=== PATIENT | male | born 1960 | race Caucasian/White ===

== ENCOUNTER → 2020-10-08 10:16 | Outpatient (BNVA) | payer MEDICARE, SELFPAY | PROVIDERS: PCP Family Medicine; Visit Provider Family Medicine | DX: I10 Essential (primary) hypertension (principal); E78.5 Hyperlipidemia, unspecified; E11.9 Type 2 diabetes mellitus without complications; E78.1 Pure hyperglyceridemia; M54.9 Dorsalgia, unspecified; G89.29 Other chronic pain | CPT/HCPCS: 80053; 80061; 81015; 82043; 83036; 83721; 85025 ==

== ENCOUNTER → 2020-11-05 09:59 | Outpatient (BNVA) | payer MEDICARE, SELFPAY | PROVIDERS: PCP Family Medicine; Visit Provider Family Medicine | DX: E11.9 Type 2 diabetes mellitus without complications (principal); I10 Essential (primary) hypertension; M51.16 Intervertebral disc disorders with radiculopathy, lumbar region | CPT/HCPCS: 80048 ==

== ENCOUNTER → 2020-12-03 10:36 | Outpatient (BNVA) | payer MEDICARE, SELFPAY | PROVIDERS: PCP Family Medicine; Visit Provider Family Medicine | DX: E11.9 Type 2 diabetes mellitus without complications (principal); R31.9 Hematuria, unspecified; I10 Essential (primary) hypertension | CPT/HCPCS: 80053; 81003; 87086 ==

== ENCOUNTER → 2021-01-12 10:24 | Outpatient (BNVA) | payer MEDICARE, SELFPAY | PROVIDERS: PCP Family Medicine; Visit Provider Family Medicine | DX: E11.9 Type 2 diabetes mellitus without complications (principal); I10 Essential (primary) hypertension; E78.5 Hyperlipidemia, unspecified | CPT/HCPCS: 80048; 83036 ==

== ENCOUNTER 2021-01-25 08:45 | Outpatient (CLI) | payer MEDICARE, SELFPAY ==
--- NOTE | 2021-01-25 08:53 | CT_ITS ---
WS: [id number] Mason Harrell LDCT LUNG CANCER SCREENING DLP: 62 CLINICAL INFORMATION: Lung cancer screening. COMPARISON: None available. TECHNIQUE: Transaxial computed tomography images of the chest non-contrast with sagital and coronal r econstructions. All CT scans at [facility] use at least one of these dose optimization techniques: automat ed exposure control; mA and/or kV adjustment per patient size (includes targeted exams where dose is matched to clinical indication); or iterative reconstruction. FINDINGS: No acute pulmonary infiltrates. Lungs well aerated. No suspicious pulmonary parenchymal abn ormalities. Tiny noncalcified nodule right upper lobe measuring 4 mm. Adjacent fibrosis. No mediastinal or hilar lymphadenopathy. Coronary calcification. No axillary lymphadenopathy. Normal GE junction. Adrenal glands are normal. Hypertrophic changes thoracic spine. Spinal stimulator. CT/CT lung screening [id number] IMPRESSION: LUNG-RADS: 2-Benign Appearance or Behavior FOLLOW UP: 12 Month: Continue annual screening with LDCT
== END 2021-01-25 08:46 | disposition home or self-care (01) ==
LOC: RAD 08:49
PROVIDERS: PCP Family Medicine; Visit Provider Family Medicine
DX: Z12.2 Encounter for screening for malignant neoplasm of respiratory organs (principal); Z87.891 Personal history of nicotine dependence
CPT/HCPCS: 71271

== ENCOUNTER → 2021-04-13 10:46 | Outpatient (BNVA) | payer MEDICARE, SELFPAY | PROVIDERS: PCP Family Medicine; Visit Provider Family Medicine | DX: E11.9 Type 2 diabetes mellitus without complications (principal); E78.5 Hyperlipidemia, unspecified; H81.10 Benign paroxysmal vertigo, unspecified ear; J01.90 Acute sinusitis, unspecified; B96.89 Other specified bacterial agents as the cause of diseases classified elsewhere; R91.1 Solitary pulmonary nodule | CPT/HCPCS: 80053; 80061; 83036; 83721 ==

== ENCOUNTER 2021-04-16 06:00 | Outpatient (RCR) | payer MEDICARE, SELFPAY | END 2021-05-16 23:59 | disposition home or self-care (01) | LOC: SPT 06:00 | PROVIDERS: PCP Family Medicine; Referring Provider Family Medicine; Visit Provider Family Medicine | DX: H81.10 Benign paroxysmal vertigo, unspecified ear (principal) | CPT/HCPCS: 95992; 97162 ==

== ENCOUNTER → 2021-10-18 08:07 | Outpatient (BNVA) | payer MEDICARE, SELFPAY | PROVIDERS: PCP Family Medicine; Visit Provider Family Medicine | DX: I10 Essential (primary) hypertension (principal); E11.9 Type 2 diabetes mellitus without complications; E78.5 Hyperlipidemia, unspecified; F32.9 Major depressive disorder, single episode, unspecified; Z86.010 Personal history of colon polyps | CPT/HCPCS: 80053; 82043; 83036; 85025 ==

== ENCOUNTER 2021-12-27 06:00 | Outpatient (RCR) | payer MEDICARE, SELFPAY | END 2022-01-13 23:59 | disposition home or self-care (01) | LOC: SPT 06:00 | PROVIDERS: PCP Family Medicine; Referring Provider Family Medicine; Visit Provider Family Medicine | DX: S29.019D Strain of muscle and tendon of unspecified wall of thorax, subsequent encounter (principal); X58.XXXD Exposure to other specified factors, subsequent encounter | CPT/HCPCS: 97110; 97161 ==

== ENCOUNTER 2022-01-19 12:34 | Outpatient (CLI) | payer MEDICARE, SELFPAY ==
--- NOTE | 2022-01-19 12:45 | US_ITS ---
WS: [id number] ULTRASOUND ABDOMEN CLINICAL INFORMATION: abdominal pain COMPARISON: None. FINDINGS: Liver Size: Mild hepatomegaly. Craniocaudal length: 16.4 cm. Echogenicity: Coarse Surface nodularity: None. Mass (size and location): None. Bile ducts Intrahepatic ducts: Normal. Common bile duct diameter: 0.5 cm. Gallbladder Normal. Gallstones: None. Gallbladder sludge: None. Gallbladder wall thickening: None. Pericholecystic fluid: None. Sonographic Liriano sign: Absent. Pancreas Normal as visualized. Spleen Splenomegaly: None. Craniocaudal length: 12.0 cm. Right kidney: Normal. Hydronephrosis: None. Size: 10.7 cm x 6.0 cm x 5.6 cm Left kidney: Normal. Hydronephrosis: None. Size: 11.8 cm x 6.2 cm x 6.0 cm. Abdominal aorta and IVC Visualized portions are normal. Ascites: None. US/US abdomen complete* [id number] IMPRESSION: 1. Mild hepatomegaly. Mild diffuse fatty infiltration of the liver. 2. Normal gallbladder. 3. No hydronephrosis in either kidney.
== END 2022-01-19 12:35 | disposition home or self-care (01) ==
PROVIDERS: PCP Family Medicine; Visit Provider Family Medicine Adult Medicine
DX: R16.0 Hepatomegaly, not elsewhere classified (principal); K76.0 Fatty (change of) liver, not elsewhere classified
CPT/HCPCS: 76700

== ENCOUNTER → 2022-02-24 08:59 | Outpatient (BNVA) | payer MEDICARE, SELFPAY | PROVIDERS: PCP Family Medicine; Visit Provider Family Medicine | DX: E11.9 Type 2 diabetes mellitus without complications (principal); E78.5 Hyperlipidemia, unspecified; I10 Essential (primary) hypertension; E78.1 Pure hyperglyceridemia | CPT/HCPCS: 80053; 80061; 83036; 83721 ==

== ENCOUNTER → 2022-05-24 08:31 | Outpatient (BNVA) | payer MEDICARE, SELFPAY | PROVIDERS: PCP Family Medicine; Visit Provider Family Medicine | DX: E11.9 Type 2 diabetes mellitus without complications (principal) | CPT/HCPCS: 80053; 83036 ==

== ENCOUNTER 2022-07-07 09:44 | Outpatient (CLI) | payer MEDICARE, SELFPAY ==
--- NOTE | 2022-07-07 10:00 | CT_ITS ---
WS: [id number] LDCT LUNG CANCER SCREENING HISTORY: former smoker TECHNIQUE: Axial imaging performed from the apices to 1 cm below the costophrenic angles. Coronal and sagittal reformats are submitted with axial MIP series. All CT scans at [facility] use at least one of these dose optimization techniques: automated exposure control; mA and/or kV adjustment per patient size (includes targeted exams where dose is matched to clinical indication); or iterativ e reconstruction. DLP: 62.1 DIvol: 1.6 COMPARISON: 01/25/2021 Diagnostic quality: Satisfactory Lung Nodules: No change in 4 mm nodule along the minor fissure in the area of scarring in the RIGHT u pper lobe. No mass or pulmonary nodules identified. Lungs: Mild hyperinflation from emphysema. Heart: Normal size heart. Moderate coronary artery plaque and calcification. No pericardial effusion. Other findings: No adenopathy. Gynecomastia. Mid to distal esophageal wall circumferential thickening and small hiatal hernia. CT/CT lung screening [id number] IMPRESSION: LUNG-RADS: 2-Benign Appearance or Behavior FOLLOW UP: 12 Month: Continue annual screening with LDCT OTHER FINDINGS (S MODIFIER): None.
== END 2022-07-07 09:45 | disposition home or self-care (01) ==
PROVIDERS: PCP Family Medicine; Visit Provider Family Medicine
DX: Z12.2 Encounter for screening for malignant neoplasm of respiratory organs (principal); Z87.891 Personal history of nicotine dependence
CPT/HCPCS: 71271

== ENCOUNTER → 2022-11-22 08:43 | Outpatient (BNVA) | payer MEDICARE, SELFPAY | PROVIDERS: PCP Family Medicine; Visit Provider Family Medicine | DX: E11.9 Type 2 diabetes mellitus without complications (principal); I10 Essential (primary) hypertension | CPT/HCPCS: 80053; 82043; 83036; 85025 ==

== ENCOUNTER → 2022-11-23 12:35 | Outpatient (BNVA) | payer MEDICARE, SELFPAY | PROVIDERS: PCP Family Medicine; Visit Provider Family Medicine | DX: Z12.5 Encounter for screening for malignant neoplasm of prostate (principal) | CPT/HCPCS: G0103 ==

== ENCOUNTER 2023-01-12 12:22 | Outpatient (CLI) | payer MEDICARE, SELFPAY ==
--- NOTE | 2023-01-12 12:45 | XR_ITS ---
WS: [id number] Exam: XR lumbar spine 2-3V* [id number] Date/Time of Exam: 01/12/2023 12:47 PM Reason For Exam: acute on chronic low back pain. There is posterior fusion of the spine from L3 to S1 with pedicle screws and posterior rods. The fusi on is ossified and stable in appearance. A disc spacer noted at L5-S1. Moderate disc space narrowing from L2 to L5. Associated laminectomy defects at the fusion. A neurostimulator pack is noted just abo ve the right iliac crest with the leads extending cephalad into the thoracic spinal canal.. Spondylos is noted. Facet arthropathy at all levels. XR/XR lumbar spine 2-3V* [id number] IMPRESSION: 1. Stable-appearing posterior fusion from L3 to S1 without obvious complication or hardware failure.
== END 2023-01-12 12:23 | disposition home or self-care (01) ==
PROVIDERS: PCP Family Medicine; Visit Provider Family Medicine
DX: M51.16 Intervertebral disc disorders with radiculopathy, lumbar region (principal); G89.29 Other chronic pain; Z98.1 Arthrodesis status
CPT/HCPCS: 72100

== ENCOUNTER → 2023-03-23 09:12 | Outpatient (BNVA) | payer MEDICARE, SELFPAY | PROVIDERS: PCP Family Medicine; Visit Provider Family Medicine | DX: E11.9 Type 2 diabetes mellitus without complications (principal); E78.5 Hyperlipidemia, unspecified | CPT/HCPCS: 80053; 80061; 83036; 83721 ==

== ENCOUNTER → 2023-05-01 09:02 | Outpatient (BNVA) | payer MEDICARE, SELFPAY | PROVIDERS: PCP Family Medicine; Visit Provider Family Medicine | DX: I10 Essential (primary) hypertension (principal) | CPT/HCPCS: 80048 ==

== ENCOUNTER → 2023-06-12 14:17 | Outpatient (BNVA) | payer MEDICARE, SELFPAY | PROVIDERS: PCP Family Medicine; Referring Provider Family Medicine; Visit Provider Surgery | DX: Z12.11 Encounter for screening for malignant neoplasm of colon (principal) | CPT/HCPCS: 99024; 99203 ==

== ENCOUNTER 2023-06-28 09:47 | Outpatient (CLI) | payer MEDICARE, SELFPAY ==
--- NOTE | 2023-06-28 09:15 | CT_ITS ---
WS: [id number] LDCT LUNG CANCER SCREENING TECHNIQUE: Noncontrast CT of the chest with coronal and sagittal reformatted images. CLINICAL INFORMATION: screening COMPARISON: None. DLP: 134.10 mGy.cm DIvol: Mean CTDIvol: 2.80 (mGy) All CT scans at [facility] use at least one of these dose optimization techniques: automat ed exposure control; mA and/or kV adjustment per patient size (includes targeted exams where dose is matched to clinical indication); or iterative reconstruction. FINDINGS:Tiny 4 mm nodule along the RIGHT minor fissure. No new suspicious pulmonary parenchymal norm alities. A few calcified granulomas. Normal caliber thoracic aorta. No mediastinal or hilar lymphadenopathy. C oronary calcification. Small esophageal hiatal hernia. No axillary lymphadenopathy. Gynecomastia. Adrenal glands are normal. Dorsal spinal stimulator. Hypertrophic changes thoracic spine. IMPRESSION: CT/CT lung screening [id number] LUNG-RADS: 2-Benign Appearance or Behavior FOLLOW UP: 12 Month: Continue annual screening with LDCT
== END 2023-06-28 09:48 | disposition home or self-care (01) ==
LOC: RAD 09:47
PROVIDERS: PCP Family Medicine; Visit Provider Family Medicine
DX: Z12.2 Encounter for screening for malignant neoplasm of respiratory organs (principal); Z87.891 Personal history of nicotine dependence
CPT/HCPCS: 71271

== ENCOUNTER → 2023-08-10 13:09 | Outpatient (BNVA) | payer MEDICARE, SELFPAY | PROVIDERS: PCP Family Medicine; Visit Provider Family Medicine | DX: E11.9 Type 2 diabetes mellitus without complications (principal); I10 Essential (primary) hypertension; E78.1 Pure hyperglyceridemia; E78.5 Hyperlipidemia, unspecified | CPT/HCPCS: 80053; 83036 ==

== ENCOUNTER 2023-08-24 08:58 | Day surgery (SDC) | payer MEDICARE, SELFPAY ==
--- NOTE | 2023-08-24 09:12 | P.ANESASSM_ITS ---
Pre-Anesthetic Assessment Height/Weight: Height 1.83 m Preop Diagnosis: screening colonoscopy Operation Date: 08/24/23 10:05 Proposed Procedures p 72599 colon G0121 screen colon A risk Z12.11(Not Applicable) - Yasmani Yanez MD Familial anesthetic complications: none Was Beta David taken within 24 hours: N/A Was Clonidine taken within 24 hours: N/A Social No tobacco 1 pack(s) per day 45 pack years Stop smoking 3 years later Exam alert, oriented x 3, clear to auscultation bilaterally and regular rate & rhythm Airway Submandibular: within normal limits Mallampati: Class II Dentition: caps and partials History/ROS No significant history except as noted Pulmonary Sleep Apnea Uses CPAP sleeping and naps CV/HEM Hypertension None reported Hepatic None reported GI Gastroesophageal Reflux Disease controlled with diet Metabolic Diabetes Mellitus NIDDM [facility] Lower Back Pain Neuropsych None reported Anesthetic Plan ASA status: 3 Anesthesia: Anesthesia Evaluation and MAC Risk of > 500 ml blood loss (7ml/kg in children): No Medications/Allergies Home Medications Medication Instructions Recorded Confirmed Last Taken Type CPAP AUTO-TITRATING #1 ea 10/08/20 08/24/23 Unknown History ascorbic acid (vitamin C) 500 mg 500 mg PO DAILY 10/08/20 08/24/23 08/23/23 History capsule cholecalciferol (vitamin D3) 50 50 mcg PO DAILY 10/08/20 08/24/23 08/23/23 History mcg (2,000 unit) capsule multivitamin 1 tab PO DAILY 10/08/20 08/24/23 08/23/23 History vitamin E (dl, acetate) 180 mg 450 mg PO DAILY 10/08/20 08/24/23 08/23/23 History (400 unit) capsule blood sugar diagnostic (Accu-Chek #100 ea 11/22/22 08/24/23 Unknown Rx Marivel Plus test strips) metformin 850 mg tablet 850 mg PO BID #180 tabs 05/02/23 08/24/23 08/23/23 Rx oxycodone-acetaminophen 5 mg-325 1 tab PO Q4H PRN pain 5 days #30 06/02/23 08/24/23 2 Weeks Ago Rx mg tablet tabs ~08/10/23 cyclobenzaprine 10 mg tablet 10 mg PO .qhs #30 tabs 08/10/23 08/24/2308/23/24 Rx amlodipine 2.5 mg tablet 2.5 mg PO DAILY 08/22/23 08/24/23 08/24/23 04:30 History canagliflozin 300 mg tablet 1 mg PO DAILY 08/22/23 08/24/23 08/23/23 History (Invokana) carvedilol 6.25 mg tablet 6.25 mg PO BID 08/22/23 08/24/23 08/24/23 04:30 History fenofibrate micronized 200 mg 200 mg PO DAILY 08/22/23 08/24/23 08/23/23 History capsule losartan 100 mg tablet 100 mg PO DAILY 08/22/23 08/24/23 08/23/23 History omega-3 fatty acids-vitamin E 2 cap PO BID 08/22/23 08/24/23 08/23/23 History 1,000 mg capsule rosuvastatin 10 mg tablet 10 mg PO DAILY 08/22/23 08/24/23 08/23/23 History Allergies Allergy/AdvReac Type Severity Reaction Status Date / Time lisinopril AdvReac Mild COUGH Verified 08/10/23 12:44 COUNT INCLUDES THE [facility] Anesthesia Medical History Right upper quadrant abdominal pain Lumbar disc disease with radiculopathy Essential hypertension Type 2 diabetes mellitus without complication, without long-term current use of insulin High triglycerides Dyslipidemia Depression JANES (obstructive sleep apnea) Surgical History S/P insertion of spinal cord stimulator History of back surgery L3-S1 Posterior Fusion L3-L4 Fusion with decompression Hardware removal of L4-S1 Fusion Family History Other CAD (coronary artery disease) Cancer Diabetes Hypertension Social History Smoking and tobacco/nicotine status: former use of tobacco/nicotine Alcohol intake: current Alcohol intake frequency: 3 or more drinks per day Alcohol type: beer and hard liquor Substance/Drug Use: never Data Anesthesia Cardiac Studies: No Data to Display
[2023-08-24 09:16] VITALS: BP 129/80; PULSE 61; RESP 18; TEMP 36.1; O2SAT 98; BMI 31.8
[2023-08-24] MEDS: sodium chloride 0.9% 1,000 ML 30 ML IV (09:28)
--- NOTE | 2023-08-24 09:29 | W.PM.OPSFHP ---
Same Day Surgery H&P Indication for Procedure/HPI DATE OF PROCEDURE: August 24, 2023 CHIEF COMPLAINT/INDICATIONFOR SURGICAL PROCEDURE: need for screening colonoscopy PREOP DIAGNOSIS: screening colonoscopy PLANNED PROCEDURE: Operation Date: 08/24/23 10:05 Proposed Procedures p 73616 colon G0121 screen colon A risk Z12.11(Not Applicable) - Yasmani Yanez MD Medications/Allergies* Home Medications Medication Instructions Recorded Confirmed Type CPAP AUTO-TITRATING #1 ea 10/08/20 08/24/23 History ascorbic acid (vitamin C) 500 mg 500 mg PO DAILY 10/08/20 08/24/23 History capsule cholecalciferol (vitamin D3) 50 50 mcg PO DAILY 10/08/20 08/24/23 History mcg (2,000 unit) capsule multivitamin 1 tab PO DAILY 10/08/20 08/24/23 History vitamin E (dl, acetate) 180 mg 450 mg PO DAILY 10/08/20 08/24/23 History (400 unit) capsule amlodipine 2.5 mg tablet 2.5 mg PO DAILY 08/22/23 08/24/23 History canagliflozin 300 mg tablet 1 mg PO DAILY 08/22/23 08/24/23 History (Invokana) carvedilol 6.25 mg tablet 6.25 mg PO BID 08/22/23 08/24/23 History fenofibrate micronized 200 mg 200 mg PO DAILY 08/22/23 08/24/23 History capsule losartan 100 mg tablet 100 mg PO DAILY 08/22/23 08/24/23 History omega-3 fatty acids-vitamin E 2 cap PO BID 08/22/23 08/24/23 History 1,000 mg capsule rosuvastatin 10 mg tablet 10 mg PO DAILY 08/22/23 08/24/23 History Allergies/Adverse Reactions Allergy/AdvReac Type Severity Reaction Status Date / Time lisinopril AdvReac Mild COUGH Verified 08/10/23 12:44 Current Medications: Generic Name Dose Route Start Last Admin Trade Name Freq PRN Reason Stop Dose Admin Sodium Chloride 1,000 mls @ 30 mls/hr 08/24/23 09:15 08/24/23 09:28 Sodium Chloride 0.9% IV 30 mls/hr .Q24H NICOL Administration Pertinent History/Comorbid Conditions* Medical History (Updated 06/02/23 @ 14:31 by Vanessa Law DO) Right upper quadrant abdominal pain Lumbar disc disease with radiculopathy Essential hypertension Type 2 diabetes mellitus without complication, without long-term current use of insulin High triglycerides Dyslipidemia Depression JANES (obstructive sleep apnea) Surgical History (Updated 12/02/21 @ 09:03 by Vanessa Law DO) S/P insertion of spinal cord stimulator History of back surgery L3-S1 Posterior Fusion L3-L4 Fusion with decompression Hardware removal of L4-S1 Fusion Family History (Updated 10/08/20 @ 09:37 by Nanda Mcneill LPN) Diabetes CAD (coronary artery disease) Cancer Hypertension Social History Smoking and tobacco/nicotine status: former use of tobacco/nicotine Alcohol intake: current Alcohol intake frequency: 3 or more drinks per day Alcohol type: beer and hard liquor Substance/Drug Use: never Pertinent Exam Findings alert, oriented x 3 and clear to auscultation bilaterally Recommendations Surgery/Procedure today Coding Level of Care Code Acute Code for Chg Fwd
[2023-08-24 09:44] LABS: Glucose Point of Care 128 mg/dL (70-110)
[2023-08-24 10:29] VITALS: BP 113/65; PULSE 56; RESP 14; TEMP 35; O2SAT 95
[2023-08-24 10:43] VITALS: BP 118/59; PULSE 60; RESP 16; O2SAT 98
--- NOTE | 2023-08-24 14:15 | ANE.PACU2 ---
Inpatient post-anesthesia follow up: Vital signs: Temperature 95 F Pulse Rate 60 Respiratory Rate 16 Blood Pressure 118/59 Pulse Oximetry 98 Oxygen Delivery Me thod Room Air Oxygen Flow Rate Fraction of Inspir ed Oxygen Hydration adequate: Yes Nausea and vomiting: No Pain level: 1 Mental status: Baseline Additional Comments: no apparent anesthetic complications noted.
== END 2023-08-24 10:59 | disposition home or self-care (01) ==
PROVIDERS: PCP Family Medicine; Visit Provider Surgery
PROC: 0DJD8ZZ Inspection of Lower Intestinal Tract, Via Natural or Artificial Opening Endoscopic (ICD-10-PCS; CPT 45378; principal; 2023-08-24 10:05)
DX: Z12.11 Encounter for screening for malignant neoplasm of colon (principal); K57.30 Diverticulosis of large intestine without perforation or abscess without bleeding; D12.5 Benign neoplasm of sigmoid colon; I10 Essential (primary) hypertension; E11.9 Type 2 diabetes mellitus without complications; E78.5 Hyperlipidemia, unspecified; F32.A Depression, unspecified; G47.33 Obstructive sleep apnea (adult) (pediatric); Z87.891 Personal history of nicotine dependence
CPT/HCPCS: 36416; 45380; 82962; 88305; J2704; J7030

== ENCOUNTER → 2023-09-06 10:38 | Outpatient (BNVA) | payer MEDICARE, SELFPAY | PROVIDERS: PCP Family Medicine; Visit Provider Surgery | DX: Z09 Encounter for follow-up examination after completed treatment for conditions other than malignant neoplasm (principal); D12.6 Benign neoplasm of colon, unspecified | CPT/HCPCS: 99213 ==

== ENCOUNTER 2023-11-09 00:50 | Inpatient (IN) | payer MEDICARE, SELFPAY ==
[2023-11-09] VITALS (14 sets, daily range): BP systolic 112–168; BP diastolic 65–105; PULSE 59–72; RESP 15–21; TEMP 36.6–36.7; O2SAT 93–98; BMI 32.0; BMI 32.1
--- NOTE | 2023-11-09 00:52 | XRR_ITS ---
PROCEDURE INFORMATION: Exam: XR Chest Exam date and time: 11/09/2023 1:05 AM Age: 63 years old Clinical indication: Angina; Prior surgery; Surgery date: 6+ months; Surgery type: Back; Additional info: Chest pain TECHNIQUE: Imaging protocol: Radiologic exam of the chest. Views: 1 view. COMPARISON: No relevant prior studies available. FINDINGS: Limitations: Lordotic positioning. Tubes, catheters and devices: Note is made of a thoracic spinal stimulator. Lungs: The lungs are clear. No pulmonary consolidation. Pleural spaces: No pleural effusion or pneumothorax. Heart/Mediastinum: The cardiomediastinal silhouette is within normal limits. Bones/joints: No acute osseous abnormalities are seen. XR/XR chest 1V portable [id number] IMPRESSION: No acute cardiopulmonary disease.
--- NOTE | 2023-11-09 00:54 | ECG_ITS ---
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 Measurements Intervals [place] Rate: 65 P: 36 [place]: 182 QRS: 7 QRSD: 101 T: 65 QT: 361 QTc: 376 Interpretive Statements SINUS RHYTHM SEPTAL MYOCARDIAL INFARCTION , PROBABLY OLD [40+ ms Q WAVE IN V1/V2] No previous ECG available for comparison Electronically Signed On 11-09-2023 15:08:01 CDT by Angelito Fernandes M.D. [email or web address]
[2023-11-09 01:02] LABS: Basophils # 0.1 10^3/uL (0.0-0.1); Eosinophils # 0.2 10^3/uL (0.0-0.8); Eosinophils % 2.2 %; Hematocrit 43.7 % (37-53); Lymphocytes # 2.5 10^3/uL (0.8-4.8); Lymphocytes % 32.7 %; Mean Corpuscular HGB Conc 33.9 g/dL (30-55); Mean Corpuscular Hemoglobin 29.8 pg (27-33); Mean Corpuscular Volume 87.9 fl (82-101); Mean Platelet Volume 10.5 fL (7.4-10.4); Monocytes # 0.7 10^3/uL (0.2-0.9); Monocytes % 9.7 %; Neutrophils # 4.14 10^3/uL (1.8-7.7); Neutrophils % 54.3 %; Nucleated Red Blood Cells % 0 %; Platelet Count 222 10^3/cmm (157-399); Red Blood Count 4.97 10^6/uL (3.85-5.65); Red Cell Distribution Width 12.8 % (12.1-15.1); White Blood Count 7.64 10^3/uL (3.29-11.43)
--- NOTE | 2023-11-09 01:12 | ED_ITS ---
HPI - Chest Pain 2 General: Chief Complaint: Chest Pain Stated Complaint: CP Time Seen by Provider: 11/09/23 00:53 History of Present Illness: Patient presents to the ER with complaints of chest pain. He states this is more of a chest pressure midsternally that stays in that location and does not radiate. Is not reproducible with palpation or exertion. Patient is only had it at night. He said it every night for the last 3 nights. Patient went to his primary care doc earlier today they did an EKG. and told patient was normal. Patient went home and started having more pain tonight so he decided to come in for further evaluation. Patient denies any cardiac history such as ME stents open heart surgery. Patient is a diabetic with high blood pressure and high cholesterol. The pain was worst earlier today he rates it as 7 or 8, patient says all the way down to 1-2 currently. Review of Systems 2 General: Reports: 10 or more systems reviewed and unremarkable except in HPI and below PFSH ED 2 PFSH: Medical History Right upper quadrant abdominal pain Lumbar disc disease with radiculopathy Essential hypertension Type 2 diabetes mellitus without complication, without long-term current use of insulin High triglycerides Dyslipidemia Depression JANES (obstructive sleep apnea) Surgical History S/P insertion of spinal cord stimulator History of back surgery L3-S1 Posterior Fusion L3-L4 Fusion with decompression Hardware removal of L4-S1 Fusion Family History Other CAD (coronary artery disease) Cancer Diabetes Hypertension Social History Smoking and tobacco/nicotine status: former use of tobacco/nicotine Alcohol intake: current Alcohol intake frequency: 3 or more drinks per day Alcohol type: beer and hard liquor Substance/Drug Use: never Physical Exam 2 Const: COMMON NORMALS: no acute distress, average body habitus, patient oriented x3, no limitations, healthy appearing, alert and well nourished HENMT: COMMON NORMALS: normocephalic, atraumatic, hearing grossly normal bilaterally, external ears normal, Normal external nose present, moist oral mucous membranes and oropharynx normal HEAD & SCALP: normocephalic and atraumatic NOSE: Normal external nose present EXTERNAL EAR: Yes external ears normal Neck/C-Spine: COMMON NORMALS: no JVD Chest: COMMONS NORMALS: normal inspection of the chest and normal palpation of entire chest wall Resp: COMMON NORMALS: normal respiratory effort, No retractions, No use of accessory muscles and clear to auscultation bilaterally AUSCULTATION: clear to auscultation bilaterally Cardio: COMMON NORMALS: no JVD, regular rate, regular rhythm, S1 normal heart sound present, S2 normal heart sound present, No gallops present (Cardio), No clicks present (Cardio), No murmurs present (Cardio) and No rub (Cardio) R ATE: regular rate RHYTHM: regular rhythm HEART SOUNDS: S1 normal heart sound present and S2 normal heart sound present GI: COMMON NORMALS: Normal to inspection, nondistended, normoactive bowel sounds present, Soft to palpation, non-tender, No hepatosplenomegaly present and no masses PALPATION: Yes Soft to palpation and Yes No hepatosplenomegaly present Neuro: COMMON NORMALS: patient oriented x3 SENSORIUM/ORIENTATION: Yes alert Course 2 Vital Signs: Vital signs: Vital Signs Temperature 98.0 F 11/09/23 00:52 Pulse Rate 59 L 11/09/23 04:05 Respiratory Rate 18 11/09/23 04:05 Blood Pressure 112/65 11/09/23 04:05 Pulse Oximetry 93 11/09/23 04:05 Oxygen Delivery Me thod Room Air 11/09/23 04:05 MDM - Chest Pain Medical Decision Making Initial EKG lab work was obtained, patient had elevated troponin, elevated blood pressure, was still having 1-2 chest pain. Patient was given full-strength aspirin and 1 inch Nitropaste. Discussed case with Dr. Fernandes and sent him the first 2 EKGs, Dr. Fernandes said is not a STEMI and he would put him in and just follow troponins. Discussed case with Dr. Kelly who had him started on a heparin drip and agreed to place patient inpatient for further evaluation and treatment. Differential Diagnosis Unlikely acute massive pulmonary embolism, acute respiratory failure, acute myocardial infarction, cardiac arrest or sudden cardiac Medical Records I reviewed the patient's medical records. Lab Data I reviewed the patient's lab results. 11/09/23 00:57 11/09/23 00:57 Radiology Impressions Chest X-Ray 11/09/23 00:52 IMPRESSION: No acute cardiopulmonary disease. Laboratory Results WBC 7.64 10^3/uL (3.29-11.43) 11/09/23 00:57 RBC 4.97 10^6/uL (3.85-5.65) 11/09/23 00:57 Hgb 14.80 g/dL (11.27-16.99) 11/09/23 00:57 Hct 43.7 % (37-53) 11/09/23 00:57 MCV 87.9 fl (82-101) 11/09/23 00:57 MCH 29.8 pg (27-33) 11/09/23 00:57 MCHC 33.9 g/dL (30-55) 11/09/23 00:57 RDW 12.8 % (12.1-15.1) 11/09/23 00:57 Plt Count 222 10^3/cmm (157-399) 11/09/23 00:57 MPV 10.5 fL (7.4-10.4) H 11/09/23 00:57 Neut % (Auto) 54.3 % 11/09/23 00:57 Lymph % (Auto) 32.7 % 11/09/23 00:57 [place] % (Auto) 9.7 % 11/09/23 00:57 Eos % (Auto) 2.2 % 11/09/23 00:57 Baso % (Auto) 1.0 % 11/09/23 00:57 Neut # (Auto) 4.14 10^3/uL (1.8-7.7) 11/09/23 00:57 Lymph # (Auto) 2.5 10^3/uL (0.8-4.8) 11/09/23 00:57 [place] # (Auto) 0.7 10^3/uL (0.2-0.9) 11/09/23 00:57 Eos # (Auto) 0.2 10^3/uL (0.0-0.8) 11/09/23 00:57 Baso # (Auto) 0.1 10^3/uL (0.0-0.1) 11/09/23 00:57 Nucleated RBC % (auto) 0 % 11/09/23 00:57 Nucleated RBCs # 0.0 /100WBC 11/09/23 00:57 PT 12.90 SECONDS (12.1-14.9) 11/09/23 00:57 INR 0.95 (0.8-1.2) 11/09/23 00:57 Sodium 139 mmol/L (136-145) 11/09/23 00:57 Potassium 4.3 mmol/L (3.5-5.1) 11/09/23 00:57 Chloride 100 mmol/L (98-107) 11/09/23 00:57 Carbon Dioxide 24 mmol/L (22-29) 11/09/23 00:57 Anion Gap 19.3 (5-19) H 11/09/23 00:57 BUN 36 mg/dL (8-23) H 11/09/23 00:57 Creatinine 1.3 mg/dL (0.7-1.2) H 11/09/23 00:57 GFR Calculation 55.4 mL/min (90-130) L 11/09/23 00:57 Glucose 162 mg/dL (65-115) H 11/09/23 00:57 Calculated Osmolality 300 mOsm/kg (285-295) H 11/09/23 00:57 Calcium 9.6 mg/dL (8.5-10.5) 11/09/23 00:57 Total Bilirubin 0.4 mg/dL (0.15-1.2) 11/09/23 00:57 AST 38 U/L (0-40) 11/09/23 00:57 ALT 27 U/L (0-41) 11/09/23 00:57 Alkaline Phosphatase 38 U/L (40-130) L 11/09/23 00:57 Troponin T Baseline 319 ng/L (0-15) H* 11/09/23 00:57 Troponin T 120 Minute 254.6 ng/L (0-15) H 11/09/23 02:53 Delta Troponin T -64.4 ABS# (0-10) L 11/09/23 02:53 Total Protein 7.7 g/dL (6.6-8.7) 11/09/23 00:57 Albumin 4.6 g/dL (3.5-5.2) 11/09/23 00:57 Globulin 3.1 g/dL (1.3-4.6) 11/09/23 00:57 All radiology interpretation(s) finalized by discharge Discharge Plan Discharge Patient Disposition: Admitted As Inpatient Clinical Impression: Non-ST elevated myocardial infarction (non-STEMI) Condition: Stable Coding Level of Care Code ED Inspector [employer] for Britni Crow
[2023-11-09 01:15] LABS: INR 0.95 (0.8-1.2)
[2023-11-09 01:20] LABS: Alanine Aminotransferase 27 U/L (0-41); Albumin Level 4.6 g/dL (3.5-5.2); Alkaline Phosphatase 38 U/L (40-130); Anion Gap 19.3 (5-19); Aspartate Amino Transferase 38 U/L (0-40); Blood Urea Nitrogen 36 mg/dL (8-23); Calcium 9.6 mg/dL (8.5-10.5); Carbon Dioxide 24 mmol/L (22-29); Chloride 100 mmol/L (98-107); Creatinine Clr Calc Pharmacy 71.6179; Globulin 3.1 g/dL (1.3-4.6); Glomerular Filtration Rate 55.4 mL/min (90-130); Glucose 162 mg/dL (65-115); Osmolality Calculated 300 mOsm/kg (285-295); Potassium 4.3 mmol/L (3.5-5.1); Sodium 139 mmol/L (136-145); Total Bilirubin 0.4 mg/dL (0.15-1.2); Total Protein 7.7 g/dL (6.6-8.7)
[2023-11-09 01:28] LABS: Troponin(5th) Baseline 319 ng/L (0-15)
[2023-11-09] MEDS: nitroglycerin 1 gm/inch oint Pkt 1 INCH TOPICAL (01:44)
[2023-11-09] MEDS: aspirin 81 mg Chew Tablet 324 MG PO (01:44)
--- NOTE | 2023-11-09 02:47 | ECG_ITS ---
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 Measurements Intervals [place] Rate: 64 P: 25 [place]: 172 QRS: 4 QRSD: 103 T: 62 QT: 411 QTc: 425 Interpretive Statements SINUS RHYTHM Possible previous septal PA Compared to ECG 11/09/2023 00:54:17 ST (T wave) deviation now present Myocardial infarct finding still present Electronically Signed On 11-09-2023 15:09:18 CDT by Angelito Fernandes M.D. [email or web address]
--- NOTE | 2023-11-09 02:54 | ECG_ITS ---
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 Measurements Intervals [place] Rate: 61 P: 49 [place]: 218 QRS: 3 QRSD: 94 T: 16 QT: 404 QTc: 409 Interpretive Statements SINUS RHYTHM WITH FIRST DEGREE AV BLOCK SEPTAL MYOCARDIAL INFARCTION , PROBABLY OLD [40+ ms Q WAVE IN V1/V2] MODERATE T-WAVE ABNORMALITY, CONSIDER ANTERIOR ISCHEMIA [-0.1+ mV T-WAVE IN V3/V4] No previous ECG available for comparison Electronically Signed On 11-09-2023 15:12:25 CDT by Angelito Fernandes M.D. [email or web address]
[2023-11-09 03:17] LABS: Troponin 5 2HR Delta -64.4 ABS# (0-10)
[2023-11-09 03:18] LABS: Troponin 5 2HR 254.6 ng/L (0-15)
[2023-11-09] MEDS: heparin drip 25,000 UNIT/500 ML PREMIX 29.9699999999999989 UNIT IV (04:39)
[2023-11-09] MEDS: heparin 5,000 unit/mL INJ 1 mL IV (04:42)
--- NOTE | 2023-11-09 06:22 | P.HP_ITS ---
Providers/Chief Complaint 2 Admitting Physician: Meme Kelly MD Primary Care Provider: Vanessa Law DO Chief Complaint: CP History of Present Illness Mason Harrell is a 63 year old male with history of hypertension and diabetes, no previous history of CHF or coronary disease, does have positive family history of coronary disease presented today with chief complaint of chest pain. Patient stating that his symptoms started on Monday night around 10 PM when he went to bed, chest pain woke him up, he played down his symptoms, went to bed again and next day he was not able to go on a walk with his he was extremely short of breath, Monday night he experienced chest pain again which are associated with nausea but he did not experience any vomiting. On Monday around midnight he started experiencing chest pain again and this time he decided to come to the hospital. He is describing his pain as pressure-like sensation which would last more than 30 minutes, nonradiating. In the ER he has been diagnosed with non-STEMI,He has been given aspirin loading dose along heparin drip Chest pain-free has Nitropaste on his chest He is stating that his mother had a heart attack at age 55 Patient stopped smoking and drinking alcohol few years ago Review of Systems 2 Const: Denies: fever(s) Eyes: Denies: change in vision ENMT: Denies: throat pain Card: Reports: chest pain Resp: Denies: dyspnea GI: Denies: abdominal pain : Denies: flank pain Musc: Denies: neck pain Medications/Allergies Home Medications Medication Instructions Recorded Confirmed Last Taken Type CPAP AUTO-TITRATING #1 ea 10/08/20 11/07/23 Unknown History ascorbic acid (vitamin C) 500 mg 500 mg PO DAILY 10/08/20 11/07/23 08/23/23 History capsule cholecalciferol (vitamin D3) 50 50 mcg PO DAILY 10/08/20 11/07/23 08/23/23 History mcg (2,000 unit) capsule multivitamin 1 tab PO DAILY 10/08/20 11/07/23 08/23/23 History vitamin E (dl, acetate) 180 mg 450 mg PO DAILY 10/08/20 11/07/23 08/23/23 History (400 unit) capsule blood sugar diagnostic (Accu-Chek #100 ea 11/22/22 11/07/23 Unknown Rx Marivel Plus test strips) amlodipine 2.5 mg tablet 2.5 mg PO DAILY 08/22/23 11/07/23 08/24/23 04:30 History canagliflozin 300 mg tablet 1 mg PO DAILY 08/22/23 11/07/23 08/23/23 History (Invokana) fenofibrate micronized 200 mg 200 mg PO DAILY 08/22/23 11/07/23 08/23/23 History capsule omega-3 fatty acids-vitamin E 2 cap PO BID 08/22/23 11/07/23 08/23/23 History 1,000 mg capsule rosuvastatin 10 mg tablet 10 mg PO DAILY 08/22/23 11/07/23 08/23/23 History carvedilol 6.25 mg tablet See Rx Instructions .Route 10/18/23 11/07/23 Unknown Rx .COMPLEX #180 tabs losartan 100 mg tablet See Rx Instructions .Route 10/18/23 11/07/23 Unknown Rx .COMPLEX #90 tabs metformin 850 mg tablet See Rx Instructions .Route 10/18/23 11/07/23 Unknown Rx .COMPLEX #180 tabs cyclobenzaprine 10 mg tablet 10 mg PO .qhs #30 tabs 11/07/23 11/07/23 Unknown Rx oxycodone-acetaminophen 5 mg-325 1 tab PO Q4H PRN pain 5 days #30 11/07/23 11/07/23 Unknown Rx mg tablet tabs Allergies Allergy/AdvReac Type Severity Reaction Status Date / Time lisinopril AdvReac Mild COUGH Verified 11/09/23 00:56 PFSH Acute 2 PFSH: Medical History Right upper quadrant abdominal pain Lumbar disc disease with radiculopathy Essential hypertension Type 2 diabetes mellitus without complication, without long-term current use of insulin High triglycerides Dyslipidemia Depression JANES (obstructive sleep apnea) Surgical History S/P insertion of spinal cord stimulator History of back surgery L3-S1 Posterior Fusion L3-L4 Fusion with decompression Hardware removal of L4-S1 Fusion Family History Other CAD (coronary artery disease) Cancer Diabetes Hypertension Social History Smoking and tobacco/nicotine status: former use of tobacco/nicotine Alcohol intake: current Alcohol intake frequency: 3 or more drinks per day Alcohol type: beer and hard liquor Substance/Drug Use: never Vitals/I&O/Wt Last Vital Signs Temp 98.0 F 11/09/23 00:52 Pulse 72 11/09/23 05:41 Resp 15 11/09/23 05:41 BP 121/67 11/09/23 05:41 Pulse Ox 94 11/09/23 05:41 O2 Del Method Room Air 11/09/23 05:41 11/08/23 11/08/23 11/09/23 14:59 22:59 06:59 Intake Total 0 / 0 Balance 0 / 0 Weight last 48 hrs Weight 107.048 kg Physical Exam 2 Narrative: Pleasant cooperative S1, S2 Hemodynamically stable Nonfocal neuroexam No acute chest pain Abdomen soft Looks euvolemic at the bedside GCS 15 Data 11/09/23 00:57 11/09/23 00:57 A&P Assessment and plan (1) Essential hypertension: (2) Non-ST elevated myocardial infarction (non-STEMI): (3) Type 2 diabetes mellitus without complication, without long-term current use of insulin: (4) JANES (obstructive sleep apnea): (5) Former smoker: Plan Non-STEMI No active chest pain Currently has nitroglycerin paste on his chest Hemodynamically stable Will request echo Cardiac consultation Patient will need an angiogram I will load him with Brilinta Heparin and aspirin administered in the ER Check B12 TSH and A1c level Patient has history of diabetes and hypertension Does not take insulin, he is on oral antihyperglycemic agent Continue Coreg and amlodipine CHANCE: Hold losartan N.p.o. for now Full code Attestations 2 Medical Necessity Statement*: More than 2 midnights anticipated Diagnoses Essential hypertension I10 Non-ST elevated myocardial infarction (non-STEMI) I21.4 Type 2 diabetes mellitus without complication, without long-term current use of insulin E11.9 JANES (obstructive sleep apnea) G47.33 Former smoker Z87.891
--- NOTE | 2023-11-09 06:47 | USCV_ITS ---
Mason Harrell Age: 63 Gender: M : 1960 Exam Date: 11/09/2023 09:03 Ordering Phys: Meme Kelly MD Technologist: [place] [facility] [place]: nstemi BP: 123 / 75 HR: 75 Rhythm: Sinus Technical Quality: Adequate MEASUREMENTS (Male / Female) Normal Values 2D ECHO LV Diastolic Diameter PLAX 5.5 cm 4.2 - 5.9 / 3.9 - 5.3 cm IVS Diastolic Thickness 1.3 cm 0.6 - 1.0 / 0.6 - 0.9 cm IVS Systolic Thickness 2.0 cm LVPW Diastolic Thickness 1.4 cm 0.6 - 1.0 / 0.6 - 0.9 cm LVPW Systolic Thickness 1.4 cm LVOT Diameter 2.1 cm LV Ejection Fraction 2D Teich 66.3 % LV Ejection Fraction MOD 2C 61.5 % LV Ejection Fraction 2C AL 63.3 % LA Diameter 3.1 cm RA Systolic Volume 4C AL 60.5 ml RA Systolic Volume 4C MOD 57.9 ml Aorta at Sinotubular Diameter 3.1 cm M-MODE LA Ao Ratio MM 1.1 AV Cusp Separation MM 1.8 cm DOPPLER AV Peak Velocity 116.3 cm/s LVOT Peak Velocity 99.0 cm/s AV Area Cont Eq vti 2.9 cm squared AV Area Cont Eq pk 2.9 cm squared MV Peak Velocity 101.0 cm/s TV Peak Velocity 180.5 cm/s TR Peak Velocity 193.0 cm/s TR Peak Gradient 14.9 mmHg TV Peak E Velocity 77.0 cm/s FINDINGS Left Ventricle Moderate hypokinesia of the mid and apical septum and the anteroseptal segments. Moderate hypokinesia of the basal inferior wall segment. The LV ejection fraction around 45 to 50% Right Ventricle The right ventricle is normal in size and function. Right Atrium The right atrium is normal in size. Left Atrium Mildly increased left atrial size. Mitral Valve Trace to mild mitral regurgitation Aortic Valve No gross abnormalities noted Tricuspid Valve No gross abnormalities noted Pulmonic Valve No gross abnormalities noted Pericardium Normal pericardium without effusion. Aorta Normal ascending aorta dimension. IVC The inferior vena cava appears normal. CONCLUSIONS Moderate hypokinesia of the mid and apical septum and the anteroseptal segments. Moderate hypokinesia of the basal inferior wall segment. The LV ejection fraction around 45 to 50%. Trace to mild mitral regurgitation. There is no pericardial effusion. There are no intracardiac masses. No similar previous studies are available for comparison Dr Mila Stearns MD [facility] (Electronically Signed) Final Date: 09 November 2023 18:49 S
--- NOTE | 2023-11-09 06:52 | ECG_ITS ---
[facility] Test Date: 2023-11-09 Pat Name: Mason Harrell Department: Room: 255 Gender: Male Him Director: : 1960 Requested By: Rikki Ziegelr Order Number: [id number] Clary MD: Angelito Fernandes M.D. Measurements Intervals [place] Rate: 65 P: 24 VT: 178 QRS: -9 QRSD: 109 T: 30 QT: 416 QTc: 433 Interpretive Statements SINUS RHYTHM WITH OCCASIONAL VENTRICULAR PREMATURE COMPLEXES MODERATE T-WAVE ABNORMALITY, CONSIDER ANTERIOR ISCHEMIA [-0.1+ mV T-WAVE IN V3/V4] Compared to ECG 11/09/2023 02:54:17 Ventricular premature complex(es) now present First degree AV block no longer present Myocardial infarct finding no longer present T-wave abnormality still present Possible ischemia still present Electronically Signed On 11-09-2023 15:12:40 CDT by Angelito Fernandes M.D. [id number]
[2023-11-09 07:12] LABS: Troponin 5 6HR 315.7 ng/L (0-15); Troponin 5 6HR Delta -3.3 ng/L (0-12)
[2023-11-09 07:14] LABS: Estmated Average Glucose 169; Hemoglobin A1C 7.5 % (4.0-6.0)
[2023-11-09] MEDS: clopidogrel 300 mg Tablet PO (07:18)
[2023-11-09] MEDS: sodium chloride 0.9% 1,000 ML 75 ML IV ×2 (07:21→20:24)
[2023-11-09 07:37] LABS: Thyroid Stimulating Hormone 5.47 uIU/mL (0.27-4.20); Vitamin B12 1459 pg/mL (232-1245)
--- NOTE | 2023-11-09 07:58 | P.CONIM_ITS ---
Providers/Reason For Consult 2 Consulting Physician/Specialty*: BONILLA Stearns MD/cardiology Reason for Consult*: Patient with unstable angina/elevated troponin Requesting Physician: Dr. Kelly Attending Physician: Meme Kelly MD Primary Care Provider: Vanessa Law DO History of Present Illness History of Present Illness Mason Harrell is a 63 year old male is admitted to hospital through the emergency room, where he presented with complaints of chest pain for the last 3 days. He was found to have elevated troponin T. Cardiology consult is requested for further cardiac evaluation recommendations. This patient has a history of hypertension, type 2 diabetes and dyslipidemia for the last more than 10 years. He has been in his baseline state of health up until Monday night when he had the first episode of chest pain while being in bed. The pain was mid substernal, 7-8/10 intensity, pressure-like in nature, associated with some shortness of breath. He did not have any other associated symptoms or radiation of pain. The pain meter lasted for 10 to 15 minutes and then gradually subsided. He and he went back to sleep. He felt okay on Monday. He was seen by his primary care provider for routine scheduled visit. He had an EKG done in the office. Which was told to be unremarkable. So he was scheduled for a stress test. On Monday night, he had another episode of chest pain of more or less similar intensity around 7:00 in the night. It lasted for 10 to 15 minutes and then gradually subsided. Around 1015 or so, he had another episode of pain which was slightly more severe and associated with some nausea. This time the pain lasted for up to 45 minutes. Again the symptoms gradually subsided. He was doing okay during the daytime yesterday. Around midnight last night, he started having the chest pain for the fourth time may be of less intensity. This time, he decided to come to the emergency room. The whole episode of pain might have lasted for an hour and a half. Currently he is totally pain-free. He did not have any radiation of pain or any other associated symptoms. Denies any orthopnea or PND. No fever, chills or cough. At the time of my examination, patient is pain-free. His initial EKG in the emergency room revealed sinus rhythm with some nonspecific T wave changes and possible old septal HI. Subsequent EKG showed some nonspecific ST changes in the anterolateral leads with biphasic T waves. Occasional PVCs. This patient has no previous history for coronary artery disease, myocardial infarction or congestive heart failure. No history for CVA or peripheral artery disease. He is known to have some renal insufficiency. He also had multiple back surgeries. He has a spinal column stimulator. He used to be a heavy alcoholic, used to drink for 40 years, quit a year ago. Also history of smoking abuse up to 2 pack a day for 40 years which he quit 3 years ago. No other substance abuse. His mother had myocardial infarction in her 50s. Other details are not available. His sister also might have had a heart attack but not for sure. No other relevant family history. Review of Systems 2 Narrative: CONSTITUTIONAL: No fever or chills. EYES: No blurring of vision or other visual disturbances lately. ENT: No hoarseness of voice, auditory disturbances or sore throat. CARDIOVASCULAR: As mentioned above. RESPIRATORY: No significant cough. GASTROINTESTINAL: No hematemesis or melena. GENITOURINARY: History of kidney disease INTEGUMENTARY: No skin rashes or history of skin cancer. NEURO: No transient ischemic attacks or amaurosis. PSYCHIATRIC: No history of psychosis or major depression. HEMATOLOGIC: No bleeding disorders or significant anemia. ENDOCRINE: No history of polyuria or polydipsia. MUSCULOSKELETAL: Chronic back pain, has a spinal column stimulator. ALLERGY/IMMUNOLOGY: As mentioned above. Medications/Allergies Home Medications Medication Instructions Recorded Confirmed Last Taken Type CPAP AUTO-TITRATING #1 ea 10/08/20 11/09/23 Unknown History ascorbic acid (vitamin C) 500 mg 500 mg PO DAILY 10/08/20 11/09/23 11/08/23 History capsule cholecalciferol (vitamin D3) 50 50 mcg PO DAILY 10/08/20 11/09/23 11/08/23 History mcg (2,000 unit) capsule multivitamin 1 tab PO DAILY 10/08/20 11/09/23 11/08/23 History vitamin E (dl, acetate) 180 mg 450 mg PO DAILY 10/08/20 11/09/23 11/08/23 History (400 unit) capsule blood sugar diagnostic (Accu-Chek #100 ea 11/22/22 11/09/23 Unknown Rx Marivel Plus test strips) amlodipine 2.5 mg tablet 2.5 mg PO DAILY 08/22/23 11/09/23 11/08/23 History canagliflozin 300 mg tablet 1 mg PO QAM 08/22/23 11/09/23 11/08/23 History (Invokana) fenofibrate micronized 200 mg 200 mg PO DAILY 08/22/23 11/09/23 11/08/23 History capsule rosuvastatin 10 mg tablet 10 mg PO DAILY 08/22/23 11/09/23 11/08/23 History carvedilol 6.25 mg tablet See Rx Instructions .Route 10/18/23 11/09/23 11/08/23 Rx .COMPLEX #180 tabs oxycodone-acetaminophen 5 mg-325 1 tab PO Q4H PRN pain 5 days #30 11/07/23 11/09/23 Unknown Rx mg tablet tabs cyclobenzaprine 10 mg tablet 10 mg PO BEDTIME PRN muscle spasms 11/09/23 11/09/23 Unknown History losartan 100 mg tablet 100 mg PO DAILY 11/09/23 11/09/23 11/08/23 History metformin 850 mg tablet 850 mg PO BID 11/09/23 11/09/23 11/08/23 History omega-3 fatty acids 1,000 mg 2,000 mg PO DAILY 11/09/23 11/09/23 11/08/23 History capsule Allergies Allergy/AdvReac Type Severity Reaction Status Date / Time lisinopril AdvReac Mild COUGH Verified 11/09/23 00:56 Current Medications Generic Name Dose Route Start Last Admin Trade Name Freq PRN Reason Stop Dose Admin Heparin Sodium (Porcine) 0 unit 11/09/23 04:09 11/09/23 04:42 Heparin 5,000 Unit/Ml Inj 1 Ml IV 5,500 unit PRN PRN Administration Heparin weight-base protocol Protocol Heparin Sodium/Sodium Chloride 25,000 unit in 500 mls @ 0 mls/hr 11/09/23 04:15 11/09/23 04:39 Heparin Drip IV 14 unit/kg/hr .Q0M NICOL 29.97 mls/hr Administration Protocol Per Protocol Sodium Chloride 1,000 mls @ 75 mls/hr 11/09/23 06:45 11/09/23 07:21 Sodium Chloride 0.9% IV 75 mls/hr .[id number] NICOL Administration PFSH Acute 2 PFSH: Medical History Right upper quadrant abdominal pain Lumbar disc disease with radiculopathy Essential hypertension Type 2 diabetes mellitus without complication, without long-term current use of insulin High triglycerides Dyslipidemia Depression JANES (obstructive sleep apnea) Surgical History S/P insertion of spinal cord stimulator History of back surgery L3-S1 Posterior Fusion L3-L4 Fusion with decompression Hardware removal of L4-S1 Fusion Family History Other CAD (coronary artery disease) Cancer Diabetes Hypertension Social History Smoking and tobacco/nicotine status: former use of tobacco/nicotine Alcohol intake: current Alcohol intake frequency: 3 or more drinks per day Alcohol type: beer and hard liquor Substance/Drug Use: never Vitals/I&O/Wt Last Vital Signs Temp 98.0 F 11/09/23 00:52 Pulse 64 11/09/23 06:34 Resp 15 11/09/23 06:34 BP 114/67 11/09/23 06:34 Pulse Ox 97 11/09/23 06:34 O2 Del Method Room Air 11/09/23 05:41 11/08/23 11/09/23 11/09/23 22:59 06:59 14:59 Intake Total 0 / 0 Balance 0 / 0 Weight last 48 hrs Weight 236 lb Physical Exam 2 Narrative: GENERAL: The patient is alert and oriented times three. Not in any acute distress. HEENT: No significant pallor, icterus or lymphadenopathy.Oral cavity: There are no mucous membrane lesions. NECK: Trachea appears to be central. No masses noted. No JVD or thyromegaly appreciated. RESPIRATORY: Chest is symmetrical. No intercostals muscle retraction or any accessory muscle activation. There is no chest wall tenderness. Breath sounds are heard bilaterally. No rales or rhonchi heard. No evidence of any consolidation. BREASTS: Deferred. HEART: The heart sounds are normal. No S3 but there is an S4. No significant murmurs. No pericardial rub ABDOMEN: No vessel pulsations or distention. No tenderness. No organomegaly appreciated. Bowel sounds are normally heard. : Deferred. RECTAL: Deferred. LYMPHATIC: No lymphadenopathy noted in the neck. EXTREMITIES: No edema or cyanosis. No clubbing. MUSCULOSKELETAL: No acute joint deformities or swelling SKIN: There are no significant rashes or ecchymosis NEUROPSYCHIATRIC: The patient is alert and oriented x3. Appears to be in a good mood. No tremors or rigidity noted. Data 11/09/23 00:57 11/09/23 00:57 Other Labs: Laboratory Last Values WBC 7.64 10^3/uL (3.29-11.43) 11/09/23 00:57 RBC 4.97 10^6/uL (3.85-5.65) 11/09/23 00:57 Hgb 14.80 g/dL (11.27-16.99) 11/09/23 00:57 Hct 43.7 % (37-53) 11/09/23 00:57 MCV 87.9 fl (82-101) 11/09/23 00:57 MCH 29.8 pg (27-33) 11/09/23 00:57 MCHC 33.9 g/dL (30-55) 11/09/23 00:57 RDW 12.8 % (12.1-15.1) 11/09/23 00:57 Plt Count 222 10^3/cmm (157-399) 11/09/23 00:57 MPV 10.5 fL (7.4-10.4) H 11/09/23 00:57 Neut % (Auto) 54.3 % 11/09/23 00:57 Lymph % (Auto) 32.7 % 11/09/23 00:57 [place] % (Auto) 9.7 % 11/09/23 00:57 Eos % (Auto) 2.2 % 11/09/23 00:57 Baso % (Auto) 1.0 % 11/09/23 00:57 Neut # (Auto) 4.14 10^3/uL (1.8-7.7) 11/09/23 00:57 Lymph # (Auto) 2.5 10^3/uL (0.8-4.8) 11/09/23 00:57 [place] # (Auto) 0.7 10^3/uL (0.2-0.9) 11/09/23 00:57 Eos # (Auto) 0.2 10^3/uL (0.0-0.8) 11/09/23 00:57 Baso # (Auto) 0.1 10^3/uL (0.0-0.1) 11/09/23 00:57 Nucleated RBC % (auto) 0 % 11/09/23 00:57 Nucleated RBCs # 0.0 /100WBC 11/09/23 00:57 PT 12.90 SECONDS (12.1-14.9) 11/09/23 00:57 INR 0.95 (0.8-1.2) 11/09/23 00:57 D-Dimer 0.30 ug/mLFEU (0-0.59) 11/09/23 00:57 Sodium 139 mmol/L (136-145) 11/09/23 00:57 Potassium 4.3 mmol/L (3.5-5.1) 11/09/23 00:57 Chloride 100 mmol/L (98-107) 11/09/23 00:57 Carbon Dioxide 24 mmol/L (22-29) 11/09/23 00:57 Anion Gap 19.3 (5-19) H 11/09/23 00:57 BUN 36 mg/dL (8-23) H 11/09/23 00:57 Creatinine 1.3 mg/dL (0.7-1.2) H 11/09/23 00:57 GFR Calculation 55.4 mL/min (90-130) L 11/09/23 00:57 Glucose 162 mg/dL (65-115) H 11/09/23 00:57 Estimat Average Glucose 169 11/09/23 00:57 Hemoglobin A1c 7.5 % (4.0-6.0) H 11/09/23 00:57 Calculated Osmolality 300 mOsm/kg (285-295) H 11/09/23 00:57 Calcium 9.6 mg/dL (8.5-10.5) 11/09/23 00:57 Total Bilirubin 0.4 mg/dL (0.15-1.2) 11/09/23 00:57 AST 38 U/L (0-40) 11/09/23 00:57 ALT 27 U/L (0-41) 11/09/23 00:57 Alkaline Phosphatase 38 U/L (40-130) L 11/09/23 00:57 Troponin T Baseline 319 ng/L (0-15) H* 11/09/23 00:57 Troponin T 120 Minute 254.6 ng/L (0-15) H 11/09/23 02:53 Delta Troponin T -64.4 ABS# (0-10) L 11/09/23 02:53 Troponin T Hi Sens 6Hr 315.7 ng/L (0-15) H 11/09/23 06:46 Troponin T Hi Sens 6Hr Delta -3.3 ng/L (0-12) L 11/09/23 06:46 Total Protein 7.7 g/dL (6.6-8.7) 11/09/23 00:57 Albumin 4.6 g/dL (3.5-5.2) 11/09/23 00:57 Globulin 3.1 g/dL (1.3-4.6) 11/09/23 00:57 Vitamin B12 1459 pg/mL (232-1245) H 11/09/23 00:57 TSH 5.47 uIU/mL (0.27-4.20) H 11/09/23 00:57 A&P Assessment and plan (1) Non-ST elevated myocardial infarction (non-STEMI): Patient has clinical features of a non-ST elevation myocardial infarction. His troponin I was found to be elevated and is currently trending downwards. The EKG showed anterolateral ST-T changes suggestive of ischemia in the LAD distribution. Hemodynamically patient seems to be stable. He may be treated with IV heparin, topical nitrates, beta-belkis, aspirin and Plavix. The lipid-lowering agents may be continued. (2) Atherosclerotic heart disease of [place] coronary artery with unstable angina pectoris: Most likely this patient has atherosclerotic heart disease. He has a strong family history for premature heart disease. For further evaluation of his coronary status, he requires a cardiac catheterization. Qualifiers: [place] vs. transplanted heart: [place] heart Qualified Code(s): I25.110 - Atherosclerotic heart disease of [place] coronary artery with unstable angina pectoris (3) Essential hypertension: Patient had accelerated hypertension at home. Currently the blood pressure seems to be under control. May continue on the current medications. (4) Dyslipidemia: May be continue on the current medications. (5) Type 2 diabetes mellitus without complication, without long-term current use of insulin: The metformin may be held at this point. Aggressive management of the diabetes would be appropriate. (6) Chronic kidney disease: Most likely this patient has a diabetic kidney. We may carefully hydrate him. Qualifiers: Chronic kidney disease stage: stage 3 (moderate) Chronic kidney disease stage 3 subtype: stage 3a (GFR 45-59) Qualified Code(s): N18.31 - Chronic kidney disease, stage 3a Plan The other problems are History of heavy smoking abuse History of heavy alcohol abuse Chronic back pain and back surgeries Plavix 300 mg p.o. now followed by 75 mg daily. Echocardiogram now. May continue on the current medications. Based on the clinical progress, further recommendations will be made. Possible cardiac catheterization tomorrow. Based on the results of the above tests and the patient's clinical progress, further recommendations will be made. Thank you for the opportunity to evaluate this patient and make these recommendations Consult Attestations 2 Medical Necessity Statement: Patient requires continued hospital stay for close monitoring and further management Coding Level of Care Code 43705 Diagnoses Non-ST elevated myocardial infarction (non-STEMI) I21.4 Atherosclerosis of [place] coronary artery of [place] heart with unstable angina pectoris I25.110 [place] vs. transplanted heart: [place] heart Essential hypertension I10 Dyslipidemia E78.5 Type 2 diabetes mellitus without complication, without long-term current use of insulin E11.9 Stage 3a chronic kidney disease N18.31 Chronic kidney disease stage: stage 3 (moderate) Chronic kidney disease stage 3 subtype: stage 3a (GFR 45-59)
[2023-11-09 08:49] LABS: Glucose Point of Care 156 mg/dL (70-110)
[2023-11-09] MEDS: insulin lispro 100 unit/1 mL SUBCUT (08:53)
[2023-11-09] MEDS: carvedilol 6.25 mg Tablet PO ×2 (08:53→17:35)
[2023-11-09] MEDS: aspirin 81 mg EC Tablet PO (08:53)
[2023-11-09] MEDS: clopidogrel 75 mg Tablet PO (08:53)
[2023-11-09 11:10] LABS: Glucose Point of Care 116 mg/dL (70-110)
--- NOTE | 2023-11-09 11:30 | P.PN_ITS ---
Subjective 2 Subjective: Seen this morning. No acute events overnight. Complains of chest pain on and off which is sharp in the middle of his chest last for few seconds each. Says he was having pain for the last 3 days however with subsequent pain episodes he also got nauseous. Has not vomited however. History of heart disease with father. History of smoking x 45 years. Vitals/I&O/Wt Last Vital Signs Temp 98.0 F 11/09/23 00:52 Pulse 64 11/09/23 08:11 Resp 15 11/09/23 08:11 BP 121/73 11/09/23 08:11 Pulse Ox 97 11/09/23 08:11 O2 Del Method Room Air 11/09/23 08:11 11/08/23 11/09/23 11/09/23 22:59 06:59 14:59 Intake Total 0 / 0 Balance 0 / 0 Weight last 48 hrs Weight 107.229 kg Weight 107.048 kg Physical Exam 2 Narrative: Pleasant cooperative S1, S2 Hemodynamically stable Nonfocal neuroexam No acute chest pain Abdomen soft nontender Lungs clear to auscultation bilaterally Looks euvolemic at the bedside GCS 15 Data 11/09/23 00:57 11/09/23 00:57 A&P Assessment and plan (1) Essential hypertension: (2) Non-ST elevated myocardial infarction (non-STEMI): (3) Type 2 diabetes mellitus without complication, without long-term current use of insulin: (4) JANES (obstructive sleep apnea): (5) Former smoker: Plan #Non-STEMI #Acute kidney injury #Former smoker #Hypertension #Obstructive sleep apnea #Diabetes mellitus, [id number] ?Continue aspirin, Plavix, continue heparin drip, ACS protocol,carvedilol, amlodipine ? Hold losartan secondary to CHANCE ? Hold hold metformin -N.p.o. at midnight tonight ? Cardiac angiogram planned for a.m. Cardiology consulted and on board. Appreciate recommendations. ? Creatinine 1.3 today. Will provide gentle hydration normal saline 100 cc/h. ? Repeat BMP in AM. Patient at risk for contrast-induced nephropathy, baseline creatinine 1.1. ? Check hemoglobin A1c, TSH. HbA1c 7.5, TSH 5.47. Cardiac diet Heparin drip Full code N.p.o. at midnight for cath in a.m. Attestations 2 Medical Necessity Statement*: Cardiac angiogram in a.m., requires hospital stay for treatment of NSTEMI. Diagnoses Essential hypertension I10 Non-ST elevated myocardial infarction (non-STEMI) I21.4 Type 2 diabetes mellitus without complication, without long-term current use of insulin E11.9 JANES (obstructive sleep apnea) G47.33 Former smoker Z87.731
[2023-11-09 13:11] LABS: Partial Thromboplastin Time 77.1 SECONDS (23.9-36.7)
[2023-11-09 16:40] LABS: Glucose Point of Care 111 mg/dL (70-110)
[2023-11-09 20:17] LABS: Partial Thromboplastin Time 63.9 SECONDS (23.9-36.7)
[2023-11-09] MEDS: heparin drip 25,000 UNIT/500 ML PREMIX 28 UNIT IV (20:27)
[2023-11-09] MEDS: atorvastatin 40 mg Tablet 80 MG PO (20:29)
--- NOTE | 2023-11-09 20:39 | PC.NURSE ---
Contacted Dr. Stearns via phone call for orders related to heparin gtt. Dr. Stearns stated to turn the heparin gtt off at 0200 on 11/10/2023.
[2023-11-09 20:41] LABS: Glucose Point of Care 144 mg/dL (70-110)
[2023-11-10] VITALS (10 sets, daily range): BP systolic 122–149; BP diastolic 61–87; PULSE 57–63; RESP 16–20; TEMP 36.7–36.9; O2SAT 93–97
[2023-11-10 04:20] LABS: Basophils # 0.1 10^3/uL (0.0-0.1); Basophils % 1.1 %; Eosinophils # 0.1 10^3/uL (0.0-0.8); Hematocrit 38.7 % (37-53); Lymphocytes # 2.1 10^3/uL (0.8-4.8); Lymphocytes % 39.9 %; Mean Corpuscular HGB Conc 33.3 g/dL (30-55); Mean Corpuscular Hemoglobin 29.5 pg (27-33); Mean Corpuscular Volume 88.4 fl (82-101); Monocytes # 0.6 10^3/uL (0.2-0.9); Monocytes % 10.6 %; Neutrophils # 2.48 10^3/uL (1.8-7.7); Neutrophils % 46.2 %; Nucleated Red Blood Cells % 0 %; Platelet Count 172 10^3/cmm (157-399); Red Blood Count 4.38 10^6/uL (3.85-5.65); Red Cell Distribution Width 12.9 % (12.1-15.1); White Blood Count 5.37 10^3/uL (3.29-11.43)
[2023-11-10 04:37] LABS: Anion Gap 15.8 (5-19); Blood Urea Nitrogen 23 mg/dL (8-23); Calcium 8.8 mg/dL (8.5-10.5); Carbon Dioxide 23 mmol/L (22-29); Chloride 101 mmol/L (98-107); Creatinine Clr Calc Pharmacy 93.0275; Glucose 137 mg/dL (65-115); Osmolality Calculated 288 mOsm/kg (285-295); Phosphorus 3.6 mg/dL (2.5-4.5); Potassium 3.8 mmol/L (3.5-5.1); Sodium 136 mmol/L (136-145)
[2023-11-10] MEDS: aspirin 81 mg EC Tablet PO (06:01)
[2023-11-10] MEDS: diphenhydrAMINE 50 mg Capsule PO (06:01)
--- NOTE | 2023-11-10 07:00 | XACV_ITS ---
Exam Room: [facility] Ht: 183 cm Wt: 107 kg BSA: 2.36 m2 Gender: Male : 1960 Any Known Allergies: Other Exam Priority: Routine Procedure(s): Procedure Description: Diagnostic procedure Procedure Description: Left Heart Catheterization Procedure Description: Left ventriculography Procedure Description: Miscellaneous Procedure Description: ACT Procedure Description: Coronary Angiography Daryn VALERO; Diagnostic Cath Status: Urgent Diagnostic Findings * The left main is a medium to large caliber vessel with a minimal irregularities. * The left anterior descending artery is a medium to large caliber vessel which appears to wrap around the LV apex minimally. The proximal LAD was found to have around 50% narrowing. At the takeoff of the first diagonal branch, there is a tapering narrowing of around 95% involving the ostium of the first diagonal. Right after the second diagonal branch, there was 90% tight segmental stenosis. Distal to this, there is another 50% lesion. The distal LAD was found to have minimal intimal irregularities. No significant stenotic lesions were noted. * The left circumflex artery is a medium caliber nondominant vessel. The first obtuse marginal artery was found to have a long tubular navigable to 90%. It is a small to medium caliber vessel. The rest of the vessel was found to have minimal intimal irregularities.. * The right coronary artery is a large-caliber ectatic vessel with mild to moderate diffuse disease. The PLV branch of the artery was found to be flush occluded. The PLV branch was found to have left to right collaterals during the left coronary injection. Conclusions 1. 62-year-old white male with history of hypertension, type 2 diabetes, dyslipidemia and some chronic kidney disease, presenting with a unstable angina and features of a non-ST elevation myocardial infarction. Echocardiogram revealed multiple wall motion abnormalities with diminished ejection fraction of around 45%. In view of the patient's presenting symptoms and the abnormal objective findings, in order to further evaluate his coronary status, a cardiac catheterization was recommended. Patient underwent left heart catheterization with left and right coronary angiogram and LV angiogram today. The findings are as follows. 2. 1. Mild left main disease #2 high-grade tapering stenosis of around 95% in the proximal to mid LAD, involving the ostium of the first diagonal branch. High-grade lesion in the mid LAD of around 90%. 3. Around 90% tubular lesion in the first IM branch of the circumflex artery. 4. Flush occlusion of the PLV branch of the right coronary artery. Mild to moderate diffuse disease in the other vessels. LV ejection fraction around 45%. LVEDP of 20 mmHg. 3. I reviewed and discussed the cardiac catheterization data with Dr. Fernandes, the buttonhole tacker. Based on the patient's clinical presentation and the angiogram findings , it was thought to be appropriate to consider surgical revascularization as the first option. I discussed this with the patient and his family. They are agreeable for surgical revascularization. I will be contacting the [facility] in [place] as per family's request and we will make arrangements for the same.. Diagnostic RX Recommendation: CABG LV EDP: 20 mmHg Ventriculography Ejection Fraction: 45.0 % Left Ventriculography Findings: * LV gram was performed in the SWAIN projection. The LV cavity appears to be mildly dilated. The LV gram of suboptimal quality because of poor opacification. Diffuse hypokinesis of the left ventricle with ejection fraction of 45%. Pressures Phase:Rest AO : 102 / 71 ( 86 ) @ 8:27:00 AM 113 / 83 ( 98 ) @ 8:31:00 AM 110 / 79 ( 95 ) @ 8:32:00 AM 128 / 77 ( 99 ) @ 8:41:00 AM 136 / 70 ( 99 ) @ 8:41:00 AM LV : 124 / 2 / 20 @ 8:39:00 AM 131 / 7 / 28 @ 8:40:00 AM 130 / 7 / 27 @ 8:41:00 AM Valves Phase:DefaultPhase AV : 3.0 @ 7:49:08 AM 3.0 @ 7:49:08 AM AV Mean Gradient: 19.0 @ 7:49:08 AM 19.0 @ 7:49:08 AM Clinical Evaluation EBL: 5mL-10mL Procedural Details Procedure Consent Obtained. Admit Source: In Patient. Pre-Procedure Time Out. Identified patient by full name and date of as verbalized by the patient/guarantor. Does the consent match the physician's order: Yes. Accurate & Complete Informed Consent: Yes. Inpatient/Outpatient History & Physical on Chart: Yes. If H&P is completed, is and addenduem needed: No; If yes, is the addendum complete: N/A. Visualize and Verify Site with Patient/Guarantor: N/A. Relevant Radiology Images available: Yes. Pre-op teaching completed and patient verbalized understanding. The risks, benefits, and alternatives of sedation and/or procedure were discussed by physician. The patient agrees to continue. Procedure started. [facility] Clinical Fraility Score: 3: Managing Well. Bond Manager Indications: ACS > 24 hours. Chest Pain Symptom Assessment: Typical Angina Symptoms. Correct patient, site and procedure confirmed by cath team. Current diagnosis: NSTEMI. IV Site on Arrival: 20 gauge in the right forearm. IV Fluids: 0.9% NaCl at KVO. 0 mL infused prior to laborer turkey farm. Pre Procedural Pulses: bilateral dorsalis pedis was 3+. Pre Procedural Pulses: bilateral posterior tibial was 3+. Pre Procedural Pulses: bilateral radial was 3+. Oxygen started at 2liters/min via nasal canula. right groin was prepped with chloroprep then draped in the usual sterile fashion. right radial was prepped with chloroprep then draped in the usual sterile fashion. Baseline sample Acquired. HR: 68 BPM. Physician arrived. Lidocaine 1% infiltrated to the right radial. Arterial access obtained. A 5 cambodian Clay catheter in over wire. ACT drawn. Results 134 seconds. Therapeutic limits - pre-heparin administration 90-150 seconds and monitoring heparin during a vascular procedure >250 seconds. Catheter removed over the exchange wire. A 5 cambodian TIG catheter in over wire. Multiple views taken of left coronary artery. Catheter removed over the exchange wire. A 5 cambodian JR4 catheter in over wire. Multiple views taken of right coronary artery. Physician review of cine films with Dr. Fernandes. Catheter removed over the exchange wire. EDP Sample taken: LV 124/2,20; HR: 67 BPM; SpO2: 94%. LV gram performed in SWAIN @ 10 mL/second for a total of 30 mL. EDP Sample taken: LV 131/7,28; HR: 70 BPM; SpO2: 94%. Pullback taken: LV 130/7,27; AO 128/77(99); Mean: 19mmHg, Peak to Peak: 3mmHg, SEP: 6sec/min; HR: 71 BPM; SpO2: 94%. Catheter removed over the exchange wire. A TR Band was successful obtaining hemostatsis at the Right Radial artery insertion site. Post Procedure: Pulses reassessed and unchanged. PERRLA. Strong, equal hand vp delivery bilaterally. No VTE prophylaxis required. Medication's Wasted: Nitro = 49.8 mg. Medication's Wasted: Heparin = 1000 units. Medication's Wasted: Other = Fentanyl 50 mcg. Medication's Wasted: Lidocaine 1% = 17 mL. Total IV fluids: 295 mL. Post-op diagnosis: CAD. Complications: None. Estimated blood loss: 5mL-10mL. Responsiveness - Normal response to verbal stimuli; alert and oriented, PERRLA. Airway - Unaffected, no intervention required; spontaneous ventilation. Circulation: W/N/L, pulses unchanged. Nausea/Vomiting: No. Procedure completed. Patient transferred by wheelchair to 1st floor. Vital chart was stopped. Access Site Site: Right Radial artery Sheath Size: 6 Fr Hemostasis Method: TR Band Hemostasis Success: Successful Procedure Medications Start: 7:07 AM Stop: 7:07 AM Medication: Versed Amount: 1 mg Route: I.V. Start: 7:08 AM Stop: 7:08 AM Medication: Fentanyl Amount: 25 mcg Route: I.V. Start: 7:11 AM Stop: 7:11 AM Medication: Versed Amount: 1 mg Route: I.V. Start: 7:16 AM Stop: 7:16 AM Medication: Nitrogylcerin Amount: 100 mcg Route: I.A. Start: 7:17 AM Stop: 7:17 AM Medication: Verapamil Amount: 5 mg Route: I.A. Start: 7:17 AM Stop: 7:17 AM Medication: 0.9% Saline Amount: 250 Route: I.V. bolus Start: 7:26 AM Stop: 7:26 AM Medication: Heparin Amount: 3000 units Route: I.V. Start: 7:36 AM Stop: 7:36 AM Medication: Fentanyl Amount: 25 mcg Route: I.V. Start: 7:36 AM Stop: 7:36 AM Medication: Verapamil Amount: 100 mcg Route: I.A. I, the attending physician, have reviewed and verified all procedure medications. Yes, all medications given per verbal order History/Risk Factors Hypertension: Yes Dyslipidemia: Yes Peripheral Arterial Disease (PAD): No Myocardial Infarction ([place]): No Obesity: Yes Renal Disease: No Tobacco Use: Former Prior Interventions PCI: No CABG: No Valve Surgery: No Report Signatures Finalized by Dr Mila Stearns MD [facility] on 11/10/2023 08:20 AM
--- NOTE | 2023-11-10 07:08 | W.PM.OPSUD ---
Surgery/Procedure H&P Update DATE OF PROCEDURE: November 10, 2023 DATE H&P PERFORMED: 11/09/23 H&P UPDATE INFORMATION: I have reviewed H&P completed within last 30 days, I have examined patient prior to procedure and No changes to prior documentation PREOP DIAGNOSIS: ASHD PRIMARY INDICATION FOR PROCEDURE: NSTEMI/ UAP PLANNED PROCEDURE: Operation Date: 11/10/23 07:00 Proposed Procedures p Cardiac Catheterization(Left) - Mila Stearns MD PATIENT REASSESSED PRIOR TO SEDATION, WITH NO CHANGE NOTED: Yes PHYSICAL EXAM: alert, oriented x 3, clear to auscultation bilaterally and regular rate & rhythm AIRWAY EVAL/ANESTHESIA PLAN: ASA IV, Monitored Anesthesia, Local Anesthesia, Risks, benefits & alternatives of sedation and/or procedure discussed and Patient agrees to continue as planned
--- NOTE | 2023-11-10 07:50 | SUR.EXTENDED ---
Received the patient back from the film laboratory technician via wheelchair s/p Diagnostic [facility]. Patient ambulated to the cot without difficulty. A & 0 x 3. classroom monitor placed and vital signs obtained. TR band intact to the right wrist. No bleeding or hematoma noted. Palpable radial pulse. No other assessment changes noted from pre cath assessment. Family at bedside. No concerns voiced at this time. Will transfer back to [facility] after recovery.
--- NOTE | 2023-11-10 08:20 | SUR.EXTENDED ---
Patient transferred to room 107 via wheelchair. Family at bedside.
--- NOTE | 2023-11-10 09:01 | PC.CHAP ---
Pastoral Care Encounter/Spiritual Assessment Type of Contact [] Declined strategic development manager visit [] Patient/Family/Request visit [] Outpatient visit [] Follow-up visit [] Physician referral [] Code/Alert [] Routine visit [] Staff referral [] Actively dying [] Patient sleeping [] Family support [] [x] Out of room [] Palliative care [] [] Receiving care in room [] Pre-surgical visit [] Trauma [] Long length of stay [] ICU visit [] Other: Relational/Emotional Strength [] Patient feels connected with others/family/visitors/staff [] Distress [] Loneliness/isolation [] Abandonment Spirituality of Patient [] Person of Kat [] Attends Yarsani of their Kat [] Believes in Prayer [] Reads Bible or Tenriism materials [] There are Spiritual issues to be addressed Production Worker Interventions [] Prayer [] Active listening [] Non-anxious presence [] Spiritual/emotional support [] Crisis/trauma care [] Spiritual counseling [] Bereavement support [] Provided bereavement packet [] Provided Bible/devotional materials [] Provided toy/stuffed animal, coloring book to patient or family member [] Provided Communion [] Anointing/Riparius [] Salvation [] Completed spiritual assessment [] Other: Impact on Illness or Injury [] Angry [] Fearful [] Anxious [] Often cries [] Exhaustion [] Unable to work [] Unable to attend jain [] Unable to walk/stand [] Unable to read [] Unable to drive [] Unable to eat/drink [] Unable to sleep [] Unable to be with family [] Patient intubated [] Other: Summary Time spent with patient
--- NOTE | 2023-11-10 09:08 | P.PN_ITS ---
Subjective 2 Medications: Reviewed: Yes Vitals/I&O/Wt Last Vital Signs Temp 98.3 F 11/10/23 08:35 Pulse 62 11/10/23 08:35 Resp 17 11/10/23 08:35 BP 149/80 11/10/23 08:35 Pulse Ox 96 11/10/23 08:35 O2 Del Method Room Air 11/10/23 08:35 11/09/23 11/10/23 11/10/23 22:59 06:59 14:59 Intake Total 1408.683 / 2158.913 183.4 / 2342.313 240 / 240 Output Total 600 / 600 600 / 600 Balance 1408.683 / 2158.913 -416.6 / 1742.313 -360 / -360 Weight last 48 hrs Weight 235 lb 8 oz Weight 235 lb 9.6 oz Weight 236 lb 6.4 oz Weight 236 lb Data 11/10/23 03:34 11/10/23 03:34 Coding Level of Care Code Acute Code for Chg Fwd
[2023-11-10] MEDS: sodium chloride 0.9% 1,000 ML 75 ML IV (09:42)
[2023-11-10] MEDS: carvedilol 6.25 mg Tablet PO (09:42)
--- NOTE | 2023-11-10 11:03 | PM.TDS ---
Transfer Summary Providers Date of Admission: 11/09/23 04:21 Date of Discharge/Transfer: 11/10/23 Attending Provider at Admission: Meme Kelly MD Attending Provider at Transfer: Erma Alexander MD Primary Care Provider: Vanessa Law DO Transfer Plans: Anticipated date of transfer: 11/10/23. Receiving Facility: [facility]. Receiving Provider: Dr. Lane. Diagnoses at Discharge Discharge Diagnosis (1) Essential hypertension: Status: Chronic (2) Non-ST elevated myocardial infarction (non-STEMI): Status: Acute (3) Type 2 diabetes mellitus without complication, without long-term current use of insulin: Status: Chronic (4) JANES (obstructive sleep apnea): Status: Chronic (5) Former smoker: Status: Acute Reason for Visit Reason for Visit CP Hospital Course Hospital Course Presented to the hospital with chest pain diagnosed with NSTEMI. Underwent cardiac catheterization found to have triple-vessel disease. Will be transferred to [facility] for planned CABG. Dr. Stearns spoke to CT surgeon Dr. Lane at [facility] who has accepted the patient for transfer. Had CHANCE on admission as well. Creatinine back to baseline with gentle hydration. 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 echo complete* [id number] Routine Ultrasound 11/09/23 06:47 Completed Laboratory Last Values WBC 5.37 10^3/uL (3.29-11.43) 11/10/23 03:34 RBC 4.38 10^6/uL (3.85-5.65) 11/10/23 03:34 Hgb 12.90 g/dL (11.27-16.99) 11/10/23 03:34 Hct 38.7 % (37-53) 11/10/23 03:34 MCV 88.4 fl (82-101) 11/10/23 03:34 MCH 29.5 pg (27-33) 11/10/23 03:34 MCHC 33.3 g/dL (30-55) 11/10/23 03:34 RDW 12.9 % (12.1-15.1) 11/10/23 03:34 Plt Count 172 10^3/cmm (157-399) 11/10/23 03:34 MPV 11.0 fL (7.4-10.4) H 11/10/23 03:34 Neut % (Auto) 46.2 % 11/10/23 03:34 Lymph % (Auto) 39.9 % 11/10/23 03:34 [place] % (Auto) 10.6 % 11/10/23 03:34 Eos % (Auto) 2.0 % 11/10/23 03:34 Baso % (Auto) 1.1 % 11/10/23 03:34 Neut # (Auto) 2.48 10^3/uL (1.8-7.7) 11/10/23 03:34 Lymph # (Auto) 2.1 10^3/uL (0.8-4.8) 11/10/23 03:34 [place] # (Auto) 0.6 10^3/uL (0.2-0.9) 11/10/23 03:34 Eos # (Auto) 0.1 10^3/uL (0.0-0.8) 11/10/23 03:34 Baso # (Auto) 0.1 10^3/uL (0.0-0.1) 11/10/23 03:34 Nucleated RBC % (auto) 0 % 11/10/23 03:34 Nucleated RBCs # 0.0 /100WBC 11/10/23 03:34 PT 12.90 SECONDS (12.1-14.9) 11/09/23 00:57 INR 0.95 (0.8-1.2) 11/09/23 00:57 APTT 63.9 SECONDS (23.9-36.7) H 11/09/23 19:56 D-Dimer 0.30 ug/mLFEU (0-0.59) 11/09/23 00:57 Sodium 136 mmol/L (136-145) 11/10/23 03:34 Potassium 3.8 mmol/L (3.5-5.1) 11/10/23 03:34 Chloride 101 mmol/L (98-107) 11/10/23 03:34 Carbon Dioxide 23 mmol/L (22-29) 11/10/23 03:34 Anion Gap 15.8 (5-19) 11/10/23 03:34 BUN 23 mg/dL (8-23) 11/10/23 03:34 Creatinine 1.0 mg/dL (0.7-1.2) 11/10/23 03:34 GFR Calculation 75.0 mL/min (90-130) L 11/10/23 03:34 Glucose 137 mg/dL (65-115) H 11/10/23 03:34 POC Glucose 144 mg/dL (70-110) H 11/09/23 20:38 Estimat Average Glucose 169 11/09/23 00:57 Hemoglobin A1c 7.5 % (4.0-6.0) H 11/09/23 00:57 Calculated Osmolality 288 mOsm/kg (285-295) 11/10/23 03:34 Calcium 8.8 mg/dL (8.5-10.5) 11/10/23 03:34 Phosphorus 3.6 mg/dL (2.5-4.5) 11/10/23 03:34 Magnesium 2.0 mg/dL (1.7-2.3) 11/10/23 03:34 Total Bilirubin 0.4 mg/dL (0.15-1.2) 11/09/23 00:57 AST 38 U/L (0-40) 11/09/23 00:57 ALT 27 U/L (0-41) 11/09/23 00:57 Alkaline Phosphatase 38 U/L (40-130) L 11/09/23 00:57 Troponin T Baseline 319 ng/L (0-15) H* 11/09/23 00:57 Troponin T 120 Minute 254.6 ng/L (0-15) H 11/09/23 02:53 Delta Troponin T -64.4 ABS# (0-10) L 11/09/23 02:53 Troponin T Hi Sens 6Hr 315.7 ng/L (0-15) H 11/09/23 06:46 Troponin T Hi Sens 6Hr Delta -3.3 ng/L (0-12) L 11/09/23 06:46 Total Protein 7.7 g/dL (6.6-8.7) 11/09/23 00:57 Albumin 4.6 g/dL (3.5-5.2) 11/09/23 00:57 Globulin 3.1 g/dL (1.3-4.6) 11/09/23 00:57 Vitamin B12 1459 pg/mL (232-1245) H 11/09/23 00:57 TSH 5.47 uIU/mL (0.27-4.20) H 11/09/23 00:57 Radiology Impressions Chest X-Ray 11/09/23 00:52 IMPRESSION: No acute cardiopulmonary disease. Recent Clincial Data Last Vital Signs Temp 98.3 F 11/10/23 08:35 Pulse 62 11/10/23 08:35 Resp 17 11/10/23 08:35 BP 149/80 11/10/23 08:35 Pulse Ox 96 11/10/23 08:35 O2 Del Method Room Air 11/10/23 08:35 Vital Signs Temp Pulse Resp BP BP Pulse Ox O2 Del Method 11/10/23 08:35 98.3 F 62 17 149/80 96 Room Air 11/10/23 08:15 60 19 H 139/61 96 Room Air 11/10/23 08:07 60 17 144/68 94 Room Air 11/10/23 08:02 63 17 132/87 95 Room Air 11/10/23 06:00 61 11/10/23 04:00 98.0 F 62 16 122/69 93 CPAP 11/10/23 00:00 98.4 F 63 20 H 127/84 97 Room Air Intake & Output/Weight 11/08/23 11/09/23 11/10/23 11/11/23 06:59 06:59 06:59 06:59 Intake Total 0 / 0 2342.313 / 2342.313 1237.5 / 1237.5 Output Total 600 / 600 600 / 600 Balance 0 / 0 1742.313 / 1742.313 637.5 / 637.5 Weight 107.048 kg 106.821 kg Vitals Last Vital Signs Temp 98.3 F 11/10/23 08:35 Pulse 62 11/10/23 08:35 Resp 17 11/10/23 08:35 BP 149/80 11/10/23 08:35 Pulse Ox 96 11/10/23 08:35 O2 Del Method Room Air 11/10/23 08:35 TS Medications Medications Acetaminophen (Acetaminophen 500 Mg Tablet) 500 mg PO Q4H PRN PRN Reason: fever Al Hydrox/Mg Hydrox/Simethicone (Dysr-Bww-Jvtuxziiu-Thalia 30 Ml Udc) 30 ml PO Q15M PRN PRN Reason: INDIGESTION Albuterol/Ipratropium (Ipratropium-Albuterol 3 Ml Neb) 3 ml INHALATION Q6H PRN PRN Reason: SHORTNESS OF BREATH Aspirin (Aspirin 81 Mg Ec Tablet) 81 mg PO DAILY [facility] Last Admin: 11/10/23 06:01 Dose: 81 mg Atorvastatin Calcium (Atorvastatin 40 Mg Tablet) 80 mg PO BEDTIME [facility] Last Admin: 11/09/23 20:29 Dose: 80 mg Atropine Sulfate (Atropine 1 Mg/Ml Sdv 1 Ml) 0.5 mg IVP PRN PRN PRN Reason: Symptomatic bradycardia Carvedilol (Carvedilol 6.25 Mg Tablet) 6.25 mg PO BID [facility] Last Admin: 11/10/23 09:42 Dose: 6.25 mg Clopidogrel Bisulfate (Clopidogrel 75 Mg Tablet) 75 mg PO DAILY [facility] Last Admin: 11/10/23 10:49 Dose: Not Given Heparin Sodium (Porcine) (Heparin 5,000 Unit/Ml Inj 1 Ml) 0 unit IV PRN PRN; Protocol PRN Reason: Heparin weight-base protocol Last Admin: 11/09/23 04:42 Dose: 5,500 unit Dextrose (D5w) 500 mls @ 0 mls/hr IV ONCE PRN; Protocol PRN Reason: Adult Acute Hypoglycemia Prot Dextrose (D10w) 125 mls @ 750 mls/hr IV PRN PRN; Protocol PRN Reason: Adult Acute Hypoglycemia Nursing Protocol Dextrose (D10w) 250 mls @ 1,000 mls/hr IV PRN PRN; Protocol PRN Reason: Adult Acute Hypoglycemia Nursing Protocol Sodium Chloride (Sodium Chloride 0.9%) 1,000 mls @ 75 mls/hr IV .[id number] [facility] Last Admin: 11/10/23 09:42 Dose: 75 mls/hr Sodium Chloride (Sodium Chloride 0.9%) 1,000 mls @ 50 mls/hr IV .Q20H ONE Stop: 11/10/23 15:36 Last Admin: 11/10/23 10:17 Dose: Not Given Insulin Human Lispro (Insulin Lispro 100 Unit/1 Ml) 0 unit SUBCUT TIDWM [facility]; Protocol Last Admin: 11/10/23 08:28 Dose: Not Given Magnesium Hydroxide (Magnesium Hydroxide 30 Ml Udc) 30 ml PO DAILY PRN PRN Reason: CONSTIPATION Morphine Sulfate (Morphine 4 Mg/Ml Sdv 1 Ml) 2 mg IVP Q4H PRN PRN Reason: SEVERE PAIN Naloxone HCl (Naloxone 0.4 Mg/Ml Sdv) 0.1 mg IVP Q2M PRN PRN Reason: RESPIRATORY RATE < 8/MIN Nitroglycerin (Nitroglycerin 0.4 Mg Sublingual Tablet) 0.4 mg SUBLINGUAL Q5M PRN PRN Reason: CHEST PAIN Ondansetron HCl (Ondansetron 2 Mg/Ml Sdv 2 Ml) 4 mg IVP Q6H PRN PRN Reason: NAUSEA AND VOMITING Temazepam (Temazepam 15 Mg Capsule) 15 mg PO BEDTIME PRN PRN Reason: INSOMNIA Discontinued Medications Aspirin (Aspirin 81 Mg Chew Tablet) 324 mg PO NOW ONE Stop: 11/09/23 01:36 Last Admin: 11/09/23 01:44 Dose: 324 mg Aspirin (Aspirin 325 Mg Tablet) 325 mg PO ONCE ONE Stop: 11/09/23 19:38 Last Admin: 11/10/23 10:17 Dose: Not Given Clopidogrel Bisulfate (Clopidogrel 300 Mg Tablet) 300 mg PO ONCE ONE Stop: 11/09/23 06:45 Last Admin: 11/09/23 07:18 Dose: 300 mg Diphenhydramine HCl (Diphenhydramine 50 Mg Capsule) 50 mg PO ONCE ONE Stop: 11/10/23 06:01 Last Admin: 11/10/23 06:01 Dose: 50 mg Diphenhydramine HCl (Diphenhydramine 50 Mg Capsule) 50 mg PO ONCE ONE Stop: 11/09/23 19:38 Last Admin: 11/10/23 10:17 Dose: Not Given Fentanyl (Fentanyl 50 Mcg/Ml Inj 2ml) Confirm Administered Dose 100 mcg .ROUTE .STK-MED ONE Stop: 11/10/23 06:14 Heparin Sodium (Porcine) (Heparin 5,000 Unit/Ml Inj 1 Ml) Confirm Administered Dose 10,000 unit .ROUTE .STK-MED ONE Stop: 11/10/23 06:14 Heparin Sodium/Sodium Chloride (Heparin Drip) 25,000 unit in 500 mls @ 0 mls/hr IV .Q0M NICOL; Protocol Stop: 11/10/23 02:00 Last Titration: 11/10/23 03:00 Dose: 0 unit/kg/hr, 0 mls/hr Lidocaine HCl (Xylocaine) Confirm Administered Dose 20 mls @ as directed .ROUTE .STK-MED ONE Stop: 11/10/23 06:14 Sodium Chloride (Sodium Chloride 0.9%) Confirm Administered Dose 1,000 mls @ as directed .ROUTE .STK-MED ONE Stop: 11/10/23 06:14 Potassium Chloride/Sodium Chloride (Sodium Chlor 0.45% +Kcl 20 Meq) 20 meq in 1,000 mls @ 100 mls/hr IV .Q10H [facility] Last Admin: 11/10/23 10:30 Dose: Not Given Midazolam HCl (Midazolam 1 Mg/Ml Inj 2 Ml) Confirm Administered Dose 2 mg .ROUTE .STK-MED ONE Stop: 11/10/23 06:14 Nitroglycerin (Nitroglycerin 1 Gm/Inch Oint Pkt) 1 inch TOPICAL ONCE ONE Stop: 11/09/23 01:36 Last Admin: 11/09/23 01:44 Dose: 1 inch Nitroglycerin (Nitroglycerin 5 Mg/Ml Sdv 10 Ml) Confirm Administered Dose 50 mg .ROUTE .STK-MED ONE Stop: 11/10/23 06:14 Verapamil HCl (Verapamil 2.5 Mg/Ml Inj 2ml) Confirm Administered Dose 5 mg .ROUTE .STK-MED ONE Stop: 11/10/23 06:14 Allergies lisinopril Adverse Reaction (Mild, Verified 11/09/23 00:56) COUGH Home Medications CPAP AUTO-TITRATING #1 ea 10/08/20 [History Confirmed 11/09/23] ascorbic acid (vitamin C) 500 mg capsule 500 mg PO DAILY 10/08/20 [History Confirmed 11/09/23] cholecalciferol (vitamin D3) 50 mcg (2,000 unit) capsule 50 mcg PO DAILY 10/08/20 [History Confirmed 11/09/23] multivitamin 1 tab PO DAILY 10/08/20 [History Confirmed 11/09/23] vitamin E (dl, acetate) 180 mg (400 unit) capsule 450 mg PO DAILY 10/08/20 [History Confirmed 11/09/23] blood sugar diagnostic (Accu-Chek Marivel Plus test strips) #100 ea 11/22/22 [Rx Confirmed 11/09/23] amlodipine 2.5 mg tablet 2.5 mg PO DAILY 08/22/23 [History Confirmed 11/09/23] canagliflozin 300 mg tablet (Invokana) 1 mg PO QAM 08/22/23 [History Confirmed 11/09/23] fenofibrate micronized 200 mg capsule 200 mg PO DAILY 08/22/23 [History Confirmed 11/09/23] rosuvastatin 10 mg tablet 10 mg PO DAILY 08/22/23 [History Confirmed 11/09/23] carvedilol 6.25 mg tablet See Rx Instructions .Route .COMPLEX #180 tabs 10/18/23 [Rx Confirmed 11/09/23] oxycodone-acetaminophen 5 mg-325 mg tablet 1 tab PO Q4H PRN pain 5 days #30 tabs 11/07/23 [Rx Confirmed 11/09/23] cyclobenzaprine 10 mg tablet 10 mg PO BEDTIME PRN muscle spasms 11/09/23 [History Confirmed 11/09/23] losartan 100 mg tablet 100 mg PO DAILY 11/09/23 [History Confirmed 11/09/23] metformin 850 mg tablet 850 mg PO BID 11/09/23 [History Confirmed 11/09/23] omega-3 fatty acids 1,000 mg capsule 2,000 mg PO DAILY 11/09/23 [History Confirmed 11/09/23] Discharge Plan Discharge Patient Disposition: Xfer Other Condition: Stable Prescriptions: No Action multivitamin Tablet 1 tab PO DAILY ascorbic acid (vitamin C) 500 mg capsule 500 mg PO DAILY (DME) CPAP AUTO-TITRATING See Rx Instructions .Route .MEDSUPPLY Qty: 1 Rx Instructions: 7-17 vitamin E (dl, acetate) 400 unit capsule 450 mg PO DAILY cholecalciferol (vitamin D3) 50 mcg (2,000 unit) capsule 50 mcg PO DAILY (DME) Accu-Chek Marivel Plus test strp Strip See Rx Instructions .ROUTE .MEDSUPPLY Qty: 100 11RF Rx Instructions: TWICE DAILY carvedilol 6.25 mg tablet See Rx Instructions .ROUTE .COMPLEX Qty: 180 0RF Dose Instruction: TAKE ONE TABLET BY MOUTH TWICE DAILY (must administer with a meal/ food) Rx Instructions: TAKE ONE TABLET BY MOUTH TWICE DAILY (must administer with a meal/ food) oxycodone-acetaminophen 5-325 mg tablet 1 tab PO Q4H PRN (Reason: pain) 5 Days Qty: 30 0RF amlodipine 2.5 mg tablet 2.5 mg PO DAILY fenofibrate micronized 200 mg capsule 200 mg PO DAILY rosuvastatin 10 mg tablet 10 mg PO DAILY Invokana 300 mg tablet 1 mg PO QAM omega-3 fatty acids 1,000 mg Capsule 2,000 mg PO DAILY cyclobenzaprine 10 mg tablet 10 mg PO BEDTIME PRN (Reason: muscle spasms) metformin 850 mg tablet 850 mg PO BID losartan 100 mg tablet 100 mg PO DAILY Referrals: Vanessa Law DO [Primary Care Provider] - Chelsie Khan FNP [Nurse Practitioner] - 11/23/23 2:30 pm Patient Instructions: Coronary Angioplasty (DC), Post Angiogram Home Care Instructions, Pain Management, Post Heart Attack Stoplight Transfer Attestations Time Spent in Transfer Care: greater than 30 min Quality Metrics Clinical Quality Measures [ No reported AMI, CVA or VTE this stay] Coding Level of Care Code 04647 Total time (in minutes) for Discharge: 46 Diagnoses Essential hypertension I10 Non-ST elevated myocardial infarction (non-STEMI) I21.4 Type 2 diabetes mellitus without complication, without long-term current use of insulin E11.9 JANES (obstructive sleep apnea) G47.33 Former smoker Z87.121
[2023-11-10 12:12] LABS: Glucose Point of Care 145 mg/dL (70-110)
--- NOTE | 2023-11-10 12:36 | PC.SOCIAL ---
Pg 2 IMM Explained to pt Pg 2 IMM. No questions voiced. Provided pt a copy. Initialed, dated, & timed a copy & placed in chart.
[2023-11-10] MEDS: insulin lispro 100 unit/1 mL SUBCUT (12:50)
--- NOTE | 2023-11-10 15:11 | PC.NURSE ---
report called to [facility] for transfer
--- NOTE | 2023-11-10 16:02 | PC.NURSE ---
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
== END 2023-11-10 16:02 | disposition short-term general hospital (02) | DRG 281 ==
LOC: ER 04:11 → ER IP 04:30 → MEDSURG 06:39 → CSU 23:07
PROVIDERS: Internal Medicine Cardiovascular Disease; Admitting Provider Internal Medicine; Emergency Provider Emergency Medicine; PCP Family Medicine; Visit Provider Internal Medicine
PROC: B2111ZZ Fluoroscopy of Multiple Coronary Arteries using Low Osmolar Contrast (ICD-10-PCS; principal; 2023-11-10 07:00)
DX: I21.4 Non-ST elevation (NSTEMI) myocardial infarction (principal); N17.9 Acute kidney failure, unspecified; I25.110 Atherosclerotic heart disease of native coronary artery with unstable angina pectoris; E11.22 Type 2 diabetes mellitus with diabetic chronic kidney disease; I12.9 Hypertensive chronic kidney disease with stage 1 through stage 4 chronic kidney disease, or unspecified chronic kidney disease; N18.31 Chronic kidney disease, stage 3a; F10.11 Alcohol abuse, in remission; M54.16 Radiculopathy, lumbar region; E78.5 Hyperlipidemia, unspecified; F32.A Depression, unspecified; G47.33 Obstructive sleep apnea (adult) (pediatric); Z79.84 Long term (current) use of oral hypoglycemic drugs; Z87.891 Personal history of nicotine dependence; Z96.82 Presence of neurostimulator; Z98.1 Arthrodesis status; Z82.49 Family history of ischemic heart disease and other diseases of the circulatory system
CPT/HCPCS: 36415; 36416; 71045; 80048; 80053; 82607; 82962; 83036; 83735; 84100; 84443; 84484; 85025; 85347; 85378; 85610; 85730; 93005; 93306; 93458; 96365; 96366; 96372; 96374; 96375; 99152; 99153; 99291; C1769; C1887; C1894; J1644; J1815; J2250; J3010; J3490; J7030; Q0163; Q9967

== ENCOUNTER → 2023-12-18 09:36 | Outpatient (BNVA) | payer MEDICARE, SELFPAY | PROVIDERS: PCP Family Medicine; Visit Provider Family Medicine | DX: E78.5 Hyperlipidemia, unspecified (principal); Z13.6 Encounter for screening for cardiovascular disorders; Z79.899 Other long term (current) drug therapy | CPT/HCPCS: 80053 ==

== ENCOUNTER 2023-12-19 08:04 | Outpatient (RCR) | payer MEDICARE, SELFPAY | END 2024-01-14 23:59 | disposition home or self-care (01) | LOC: CR 08:04 | PROVIDERS: PCP Family Medicine; Referring Provider Internal Medicine Cardiovascular Disease; Visit Provider Internal Medicine Cardiovascular Disease | DX: Z95.1 Presence of aortocoronary bypass graft (principal) | CPT/HCPCS: 93798; 99213 ==

== ENCOUNTER → 2023-12-19 13:53 | Outpatient (BNVA) | payer MEDICARE, SELFPAY | PROVIDERS: PCP Family Medicine; Visit Provider Nurse Practitioner Family | DX: I25.10 Atherosclerotic heart disease of native coronary artery without angina pectoris (principal); E78.5 Hyperlipidemia, unspecified; Z87.891 Personal history of nicotine dependence; Z95.1 Presence of aortocoronary bypass graft; I10 Essential (primary) hypertension | CPT/HCPCS: 99213 ==

== ENCOUNTER 2023-12-30 15:28 | Emergency (ER) | payer MEDICARE, SELFPAY ==
[2023-12-30] VITALS (7 sets, daily range): BP systolic 116–141; BP diastolic 70–83; PULSE 70–84; RESP 17–22; TEMP 36.8; O2SAT 94–99; BMI 28.6
--- NOTE | 2023-12-30 15:38 | ECG_ITS ---
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 Measurements Intervals [place] Rate: 79 P: 70 WV: 203 QRS: 53 QRSD: 99 T: 90 QT: 288 QTc: 330 Interpretive Statements SINUS RHYTHM WITH OCCASIONAL VENTRICULAR PREMATURE COMPLEXES NONSPECIFIC T-WAVE ABNORMALITY Compared to ECG 11/09/2023 08:25:18 Possible ischemia no longer present T-wave abnormality still present Electronically Signed On 12-30-2023 21:32:28 CDT by Matthieu Kurtz M.D. [id number]
--- NOTE | 2023-12-30 15:39 | XRR_ITS ---
PROCEDURE INFORMATION: Exam: XR Chest Exam date and time: 12/30/2023 3:56 PM Age: 63 years old Clinical indication: Pain; Chest pressure; Prior surgery; Surgery date: 1-6 months; Surgery type: Heart; Additional info: Chest pain TECHNIQUE: Imaging protocol: Radiologic exam of the chest. Views: 1 view. COMPARISON: CR XR chest 1V portable [id number] 11/09/2023 1:05 AM FINDINGS: Tubes, catheters and devices: Neural stimulatory device projecting over the lower thoracic spinal canal unchanged. Lungs: Unremarkable. No consolidation. Pleural spaces: Unremarkable. No pleural effusion. No pneumothorax. Heart/Mediastinum: Unremarkable. No cardiomegaly. Bones/joints: Prior median sternotomy otherwise unremarkable for age. XR/XR chest 1V portable [id number] IMPRESSION: Negative chest exam.
[2023-12-30 16:02] LABS: Basophils # 0.1 10^3/uL (0.0-0.1); Basophils % 1.4 %; Eosinophils # 0.3 10^3/uL (0.0-0.8); Eosinophils % 5.2 %; Hematocrit 38.9 % (37-53); Lymphocytes # 1.6 10^3/uL (0.8-4.8); Lymphocytes % 32.1 %; Mean Corpuscular HGB Conc 31.1 g/dL (30-55); Mean Corpuscular Hemoglobin 27.3 pg (27-33); Mean Corpuscular Volume 87.8 fl (82-101); Monocytes # 0.6 10^3/uL (0.2-0.9); Monocytes % 11.7 %; Neutrophils # 2.45 10^3/uL (1.8-7.7); Neutrophils % 49.4 %; Nucleated Red Blood Cells % 0 %; Platelet Count 262 10^3/cmm (157-399); Red Blood Count 4.43 10^6/uL (3.85-5.65); White Blood Count 4.96 10^3/uL (3.29-11.43)
--- NOTE | 2023-12-30 16:04 | ED_ITS ---
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 6 weeks ago Time Seen by Provider: 12/30/23 16:00 Source: patient Mode of arrival: ambulatory History of Present Illness: 63-year-old male presents to the emergen cy room with complaint of chest pain. Patient is a known history of coronary disease approximately 7 weeks ago patient had coronary bypass graft. Chest pain woke him up from sleep radiates into his neck and into his left shoulder and arm. No diaphoresis but did have some shortness of breath associated with MD complaint: chest pain Pertinent past history: coronary artery disease Prior episodes: Yes Onset: during rest Pain radiation: left arm and left shoulder Severity: mild Associated symptoms: Deny abdominal pain, dyspnea or fever(s) Review of Systems 2 Const: Denies: fever(s) or chills Card: Denies: chest pain Resp: Denies: dyspnea GI: Denies: abdominal pain : Denies: dysuria, urinary frequency or urinary urgency Musc: Denies: neck pain or back pain Skin/Breast: Denies: rash PFSH ED 2 PFSH: Medical History Atherosclerosis of marshall coronary artery without angina pectoris CABG x 5 11/13/2023 Dr Garcia Right upper quadrant abdominal pain Lumbar disc disease with radiculopathy Essential hypertension Type 2 diabetes mellitus without complication, without long-term current use of insulin High triglycerides Dyslipidemia Depression JANES (obstructive sleep apnea) Surgical History S/P CABG x 5 S/P insertion of spinal cord stimulator History of back surgery L3-S1 Posterior Fusion L3-L4 Fusion with decompression Hardware removal of L4-S1 Fusion Family History Other CAD (coronary artery disease) Cancer Diabetes Hypertension Social History Smoking and tobacco/nicotine status: former use of tobacco/nicotine Alcohol intake: current Alcohol intake frequency: 3 or more drinks per day Alcohol type: beer and hard liquor Substance/Drug Use: never Physical Exam 2 Const: COMMON NORMALS: no acute distress GENERAL APPEARANCE: cooperative and comfortable ORIENTATION/CONSCIOUSNESS: Yes awake, Yes oriented to person, Yes oriented to place and Yes oriented to time HENMT: COMMON NORMALS: normocephalic, atraumatic and hearing grossly normal bilaterally HEAD & SCALP: normocephalic and atraumatic Resp: COMMON NORMALS: normal respiratory effort, No retractions, No use of accessory muscles and clear to auscultation bilaterally AUSCULTATION: clear to auscultation bilaterally Cardio: COMMON NORMALS: regular rate, regular rhythm and No murmurs present (Cardio) RATE: regular rate RHYTHM: regular rhythm GI: COMMON NORMALS: Soft to palpation and No hepatosplenomegaly present A USCULTATION: Yes normoactive bowel sounds PALPATION: Yes Soft to palpation, No Tenderness to palpation present (GI), No Guarding due to palpation present (GI) and Yes No hepatosplenomegaly present Extremity: COMMON NORMALS: normal to inspection, capillary refill normal, no clubbing, cyanosis or edema, no calf tenderness and no pedal edema Neuro: SENSORIUM/ORIENTATION: Yes oriented to person, Yes oriented to place and Yes oriented to time Skin: COMMON NORMALS: no rashes or lesions noted GENERAL SKIN EXAM: no rashes or lesions noted Course 2 Vital Signs: Vital signs: Vital Signs Temperature 98.2 F 12/30/23 15:34 Pulse Rate 75 12/30/23 19:02 Respiratory Rate 20 H 12/30/23 19:02 Blood Pressure 141/82 12/30/23 19:02 Pulse Oximetry 99 12/30/23 19:02 Oxygen Delivery Me thod Room Air 12/30/23 15:34 MDM - Chest Pain Medical Decision Making Care signed out to Dr. Santana at change of shift. See final notes for diagnosis and disposition. 63-year-old male checked out at shift change. This patient has no more discomfort. He was having several PVCs on the monitor when he arrived, and associated his discomfort with those PVCs. They seem to have improved on their own. His blood pressure is improved as well. His CBC is not remarkable. His BMP is not remarkable. Chest x-ray is negative. Abdominal CT shows no acute findings. His lipase is mildly elevated at 215 which could be causing some discomfort. His troponins were 15 and 16 at 2 hours. His EKG is not remarkable for any ST wave changes. He wishes to go home. He was counseled on ability to observe, for 6-hour troponin, and continuous monitoring, but he declined. As he is asymptomatic currently, he will be allowed discharge. He knows to return for any return of his symptoms. Lab Data 12/30/23 15:57 12/30/23 15:57 Radiology Impressions Chest X-Ray 12/30/23 15:39 IMPRESSION: Negative chest exam. Abdomen/Pelvis CT 12/30/23 17:05 IMPRESSION: No acute findings within the abdomen or pelvis. Laboratory Results WBC 4.96 10^3/uL (3.29-11.43) 12/30/23 15:57 RBC 4.43 10^6/uL (3.85-5.65) 12/30/23 15:57 Hgb 12.10 g/dL (11.27-16.99) 12/30/23 15:57 Hct 38.9 % (37-53) 12/30/23 15:57 MCV 87.8 fl (82-101) 12/30/23 15:57 MCH 27.3 pg (27-33) 12/30/23 15:57 MCHC 31.1 g/dL (30-55) 12/30/23 15:57 RDW 14.0 % (12.1-15.1) 12/30/23 15:57 Plt Count 262 10^3/cmm (157-399) 12/30/23 15:57 MPV 10.0 fL (7.4-10.4) 12/30/23 15:57 Neut % (Auto) 49.4 % 12/30/23 15:57 Lymph % (Auto) 32.1 % 12/30/23 15:57 [place] % (Auto) 11.7 % 12/30/23 15:57 Eos % (Auto) 5.2 % 12/30/23 15:57 Baso % (Auto) 1.4 % 12/30/23 15:57 Neut # (Auto) 2.45 10^3/uL (1.8-7.7) 12/30/23 15:57 Lymph # (Auto) 1.6 10^3/uL (0.8-4.8) 12/30/23 15:57 [place] # (Auto) 0.6 10^3/uL (0.2-0.9) 12/30/23 15:57 Eos # (Auto) 0.3 10^3/uL (0.0-0.8) 12/30/23 15:57 Baso # (Auto) 0.1 10^3/uL (0.0-0.1) 12/30/23 15:57 Nucleated RBC % (auto) 0 % 12/30/23 15:57 Nucleated RBCs # 0.0 /100WBC 12/30/23 15:57 Sodium 136 mmol/L (136-145) 12/30/23 15:57 Potassium 3.9 mmol/L (3.5-5.1) 12/30/23 15:57 Chloride 99 mmol/L (98-107) 12/30/23 15:57 Carbon Dioxide 22 mmol/L (22-29) 12/30/23 15:57 Anion Gap 18.9 (5-19) 12/30/23 15:57 BUN 40 mg/dL (8-23) H 12/30/23 15:57 Creatinine 1.2 mg/dL (0.7-1.2) 12/30/23 15:57 GFR Calculation 60.8 mL/min (90-130) L 12/30/23 15:57 Glucose 118 mg/dL (65-115) H 12/30/23 15:57 Calculated Osmolality 293 mOsm/kg (285-295) 12/30/23 15:57 Calcium 9.4 mg/dL (8.5-10.5) 12/30/23 15:57 Magnesium 2.2 mg/dL (1.7-2.3) 12/30/23 15:57 Total Bilirubin 0.4 mg/dL (0.15-1.2) 12/30/23 15:57 AST 17 U/L (0-40) 12/30/23 15:57 ALT 14 U/L (0-41) 12/30/23 15:57 Alkaline Phosphatase 46 U/L (40-130) 12/30/23 15:57 Creatine Kinase 126 U/L (39-308) 12/30/23 15:57 Troponin T Baseline 15 ng/L (0-15) 12/30/23 15:57 Troponin T 120 Minute 16.04 ng/L (0-15) H 12/30/23 17:57 Delta Troponin T 1.04 ABS# (0-10) 12/30/23 17:57 Total Protein 7.6 g/dL (6.6-8.7) 12/30/23 15:57 Albumin 4.2 g/dL (3.5-5.2) 12/30/23 15:57 Globulin 3.4 g/dL (1.3-4.6) 12/30/23 15:57 Lipase 215 U/L (13-60) H 12/30/23 15:57 Discharge Plan Discharge Patient Disposition: Home Clinical Impression: Chest discomfort, Contraction, premature ventricular Condition: Stable Prescriptions: No Action multivitamin Tablet 1 tab PO DAILY ascorbic acid (vitamin C) 500 mg capsule 500 mg PO DAILY (DME) CPAP AUTO-TITRATING See Rx Instructions .Route .MEDSUPPLY Qty: 1 Rx Instructions: 7-17 vitamin E (dl, acetate) 400 unit capsule 450 mg PO DAILY cholecalciferol (vitamin D3) 50 mcg (2,000 unit) capsule 50 mcg PO DAILY (DME) Accu-Chek Marivel Plus test strp Strip See Rx Instructions .ROUTE .MEDSUPPLY Qty: 100 11RF Rx Instructions: TWICE DAILY aspirin 81 mg tablet,delayed release (DR/EC) 81 mg PO DAILY mupirocin 2 % ointment 1 applic topical BID Qty: 15 0RF carvedilol 3.125 mg tablet 3.125 mg PO BID Qty: 180 1RF Rx Instructions: must administer with a meal/food clopidogrel 75 mg tablet 75 mg PO DAILY Qty: 90 0RF losartan 50 mg tablet 50 mg PO DAILY Qty: 90 1RF spironolactone 25 mg tablet 25 mg PO DAILY Qty: 90 1RF oxycodone-acetaminophen 5-325 mg tablet 1 tab PO Q4H PRN (Reason: pain) 5 Days Qty: 30 0RF rosuvastatin 20 mg tablet 20 mg PO DAILY Qty: 90 0RF fenofibrate micronized 200 mg capsule 200 mg PO DAILY Invokana 300 mg tablet 1 mg PO QAM omega-3 fatty acids 1,000 mg Capsule 2,000 mg PO DAILY Discharge Orders: Discharge ED (Routine); Ordered 12/30/23 Ordered By: Ananth Santana Referrals: Vanessa Law DO [Primary Care Provider] - 1-3 days Patient Instructions: Chest Pain (ED), Pancreatitis (ED), Premature Ventricular Contractions (ED), Opioid Safety, Pain Management Activity Restrictions/Additional Instructions: Home and relative rest for now. As we discussed, follow a liquid diet for 36 hours or so, in case pancreas irritation that is subclinical or not showing up on CAT scan could be an offending issue. Return for worsening discomfort despite this, any appearance of shortness of breath, significant weakness, any other concerning symptoms. See your doctor next week. Call your greens picker on Monday and let them know you were seen in the emergency department. 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 6 weeks ago Time Seen by Provider: 12/30/23 16:00 [facility] ED 2 PFSH: Medical History Atherosclerosis of marshall coronary artery without angina pectoris CABG x 5 11/13/2023 Dr Garcia Right upper quadrant abdominal pain Lumbar disc disease with radiculopathy Essential hypertension Type 2 diabetes mellitus without complication, without long-term current use of insulin High triglycerides Dyslipidemia Depression JANES (obstructive sleep apnea) Surgical History S/P CABG x 5 S/P insertion of spinal cord stimulator History of back surgery L3-S1 Posterior Fusion L3-L4 Fusion with decompression Hardware removal of L4-S1 Fusion Family History Other CAD (coronary artery disease) Cancer Diabetes Hypertension Social History Smoking and tobacco/nicotine status: former use of tobacco/nicotine Alcohol intake: current Alcohol intake frequency: 3 or more drinks per day Alcohol type: beer and hard liquor Substance/Drug Use: never Course 2 Vital Signs: Vital signs: Vital Signs Temperature 98.2 F 12/30/23 15:34 Pulse Rate 75 12/30/23 19:02 Respiratory Rate 20 H 12/30/23 19:02 Blood Pressure 141/82 12/30/23 19:02 Pulse Oximetry 99 12/30/23 19:02 Oxygen Delivery Me thod Room Air 12/30/23 15:34 MDM - Chest Pain Medical Decision Making 63-year-old male checked out at shift change. This patient has no more discomfort. He was having several PVCs on the monitor when he arrived, and associated his discomfort with those PVCs. They seem to have improved on their own. His blood pressure is improved as well. His CBC is not remarkable. His BMP is not remarkable. Chest x-ray is negative. Abdominal CT shows no acute findings. His lipase is mildly elevated at 215 which could be causing some discomfort. His troponins were 15 and 16 at 2 hours. His EKG is not remarkable for any ST wave changes. He wishes to go home. He was counseled on ability to observe, for 6-hour troponin, and continuous monitoring, but he declined. As he is asymptomatic currently, he will be allowed discharge. He knows to return for any return of his symptoms. Lab Data 12/30/23 15:57 12/30/23 15:57 Radiology Impressions Chest X-Ray 12/30/23 15:39 IMPRESSION: Negative chest exam. Abdomen/Pelvis CT 12/30/23 17:05 IMPRESSION: No acute findings within the abdomen or pelvis. Laboratory Results WBC 4.96 10^3/uL (3.29-11.43) 12/30/23 15:57 RBC 4.43 10^6/uL (3.85-5.65) 12/30/23 15:57 Hgb 12.10 g/dL (11.27-16.99) 12/30/23 15:57 Hct 38.9 % (37-53) 12/30/23 15:57 MCV 87.8 fl (82-101) 12/30/23 15:57 MCH 27.3 pg (27-33) 12/30/23 15:57 MCHC 31.1 g/dL (30-55) 12/30/23 15:57 RDW 14.0 % (12.1-15.1) 12/30/23 15:57 Plt Count 262 10^3/cmm (157-399) 12/30/23 15:57 MPV 10.0 fL (7.4-10.4) 12/30/23 15:57 Neut % (Auto) 49.4 % 12/30/23 15:57 Lymph % (Auto) 32.1 % 12/30/23 15:57 [place] % (Auto) 11.7 % 12/30/23 15:57 Eos % (Auto) 5.2 % 12/30/23 15:57 Baso % (Auto) 1.4 % 12/30/23 15:57 Neut # (Auto) 2.45 10^3/uL (1.8-7.7) 12/30/23 15:57 Lymph # (Auto) 1.6 10^3/uL (0.8-4.8) 12/30/23 15:57 [place] # (Auto) 0.6 10^3/uL (0.2-0.9) 12/30/23 15:57 Eos # (Auto) 0.3 10^3/uL (0.0-0.8) 12/30/23 15:57 Baso # (Auto) 0.1 10^3/uL (0.0-0.1) 12/30/23 15:57 Nucleated RBC % (auto) 0 % 12/30/23 15:57 Nucleated RBCs # 0.0 /100WBC 12/30/23 15:57 Sodium 136 mmol/L (136-145) 12/30/23 15:57 Potassium 3.9 mmol/L (3.5-5.1) 12/30/23 15:57 Chloride 99 mmol/L (98-107) 12/30/23 15:57 Carbon Dioxide 22 mmol/L (22-29) 12/30/23 15:57 Anion Gap 18.9 (5-19) 12/30/23 15:57 BUN 40 mg/dL (8-23) H 12/30/23 15:57 Creatinine 1.2 mg/dL (0.7-1.2) 12/30/23 15:57 GFR Calculation 60.8 mL/min (90-130) L 12/30/23 15:57 Glucose 118 mg/dL (65-115) H 12/30/23 15:57 Calculated Osmolality 293 mOsm/kg (285-295) 12/30/23 15:57 Calcium 9.4 mg/dL (8.5-10.5) 12/30/23 15:57 Magnesium 2.2 mg/dL (1.7-2.3) 12/30/23 15:57 Total Bilirubin 0.4 mg/dL (0.15-1.2) 12/30/23 15:57 AST 17 U/L (0-40) 12/30/23 15:57 ALT 14 U/L (0-41) 12/30/23 15:57 Alkaline Phosphatase 46 U/L (40-130) 12/30/23 15:57 Creatine Kinase 126 U/L (39-308) 12/30/23 15:57 Troponin T Baseline 15 ng/L (0-15) 12/30/23 15:57 Troponin T 120 Minute 16.04 ng/L (0-15) H 12/30/23 17:57 Delta Troponin T 1.04 ABS# (0-10) 12/30/23 17:57 Total Protein 7.6 g/dL (6.6-8.7) 12/30/23 15:57 Albumin 4.2 g/dL (3.5-5.2) 12/30/23 15:57 Globulin 3.4 g/dL (1.3-4.6) 12/30/23 15:57 Lipase 215 U/L (13-60) H 12/30/23 15:57 All radiology interpretation(s) finalized by discharge Discharge Plan Discharge Patient Disposition: Home Clinical Impression: Chest discomfort, Contraction, premature ventricular Condition: Stable Prescriptions: No Action multivitamin Tablet 1 tab PO DAILY ascorbic acid (vitamin C) 500 mg capsule 500 mg PO DAILY (DME) CPAP AUTO-TITRATING See Rx Instructions .Route .MEDSUPPLY Qty: 1 Rx Instructions: 7-17 vitamin E (dl, acetate) 400 unit capsule 450 mg PO DAILY cholecalciferol (vitamin D3) 50 mcg (2,000 unit) capsule 50 mcg PO DAILY (DME) Accu-Chek Marivel Plus test strp Strip See Rx Instructions .ROUTE .MEDSUPPLY Qty: 100 11RF Rx Instructions: TWICE DAILY aspirin 81 mg tablet,delayed release (DR/EC) 81 mg PO DAILY mupirocin 2 % ointment 1 applic topical BID Qty: 15 0RF carvedilol 3.125 mg tablet 3.125 mg PO BID Qty: 180 1RF Rx Instructions: must administer with a meal/food clopidogrel 75 mg tablet 75 mg PO DAILY Qty: 90 0RF losartan 50 mg tablet 50 mg PO DAILY Qty: 90 1RF spironolactone 25 mg tablet 25 mg PO DAILY Qty: 90 1RF oxycodone-acetaminophen 5-325 mg tablet 1 tab PO Q4H PRN (Reason: pain) 5 Days Qty: 30 0RF rosuvastatin 20 mg tablet 20 mg PO DAILY Qty: 90 0RF fenofibrate micronized 200 mg capsule 200 mg PO DAILY Invokana 300 mg tablet 1 mg PO QAM omega-3 fatty acids 1,000 mg Capsule 2,000 mg PO DAILY Discharge Orders: Discharge ED (Routine); Ordered 12/30/23 Ordered By: Ananth Santana Referrals: Vanessa Law DO [Primary Care Provider] - 1-3 days Patient Instructions: Chest Pain (ED), Pancreatitis (ED), Premature Ventricular Contractions (ED), Opioid Safety, Pain Management Activity Restrictions/Additional Instructions: Home and relative rest for now. As we discussed, follow a liquid diet for 36 hours or so, in case pancreas irritation that is subclinical or not showing up on CAT scan could be an offending issue. Return for worsening discomfort despite this, any appearance of shortness of breath, significant weakness, any other concerning symptoms. See your doctor next week. Call your greens picker on Monday and let them know you were seen in the emergency department. Coding Level of Care Code ED Elastic Attacher Zigzag for Britni Crow
[2023-12-30 16:33] LABS: Alanine Aminotransferase 14 U/L (0-41); Albumin Level 4.2 g/dL (3.5-5.2); Alkaline Phosphatase 46 U/L (40-130); Anion Gap 18.9 (5-19); Aspartate Amino Transferase 17 U/L (0-40); Blood Urea Nitrogen 40 mg/dL (8-23); Calcium 9.4 mg/dL (8.5-10.5); Carbon Dioxide 22 mmol/L (22-29); Chloride 99 mmol/L (98-107); Creatinine Clr Calc Pharmacy 73.6486; Globulin 3.4 g/dL (1.3-4.6); Glomerular Filtration Rate 60.8 mL/min (90-130); Glucose 118 mg/dL (65-115); Lipase 215 U/L (13-60); Magnesium 2.2 mg/dL (1.7-2.3); Osmolality Calculated 293 mOsm/kg (285-295); Potassium 3.9 mmol/L (3.5-5.1); Sodium 136 mmol/L (136-145); Total Bilirubin 0.4 mg/dL (0.15-1.2); Total Protein 7.6 g/dL (6.6-8.7)
[2023-12-30 16:36] LABS: Troponin(5th) Baseline 15 ng/L (0-15)
--- NOTE | 2023-12-30 17:05 | CTR_ITS ---
PROCEDURE INFORMATION: Exam: CT Abdomen And Pelvis Without Contrast Exam date and time: 12/30/2023 5:40 PM Age: 63 years old Clinical indication: Abnormal findings; Abnormal lab test; Elevated lipase; Prior surgery; Surgery date: 6+ months; Surgery type: Heart, back; Additional info: Elevated lipase TECHNIQUE: Imaging protocol: Computed tomography of the abdomen and pelvis without contrast. Radiation optimization: All CT scans at this facility use at least one of these dose optimization techniques: automated exposure control; mA and/or kV adjustment per patient size (includes targeted exams where dose is matched to clinical indication); or iterative reconstruction. COMPARISON: US abdomen complete* [id number] 01/19/2022 12:52 PM RADIATION DOSE METRICS: Total DLP (mGy-cm): 960.99 FINDINGS: Lungs: Lung bases are clear. Liver: Liver is unremarkable. No mass or enlargement detected. Gallbladder and bile ducts: Normal. No calcified stones. No ductal dilation. Pancreas: Unremarkable. Main pancreatic duct is not significantly dilated. Spleen: There are scattered calcified granulomas within the spleen, longstanding, otherwise spleen is unremarkable. Adrenal glands: Normal. No mass. Kidneys and ureters: Kidneys are unremarkable. No calculi or hydronephrosis detected. Stomach and bowel: There are multiple diverticuli throughout the distal portion of the large bowel without evidence of diverticulitis. Appendix: No evidence of appendicitis. Intraperitoneal space: Unremarkable. No free air. No significant fluid collection. Vasculature: Scattered atherosclerotic changes of the abdominal aorta and iliac vessels. No aortic aneurysm. Lymph nodes: Unremarkable. No enlarged lymph nodes. Urinary bladder: Urinary bladder is mildly distended which may be transient in nature. Reproductive: Prostate gland is mildly enlarged. Bones/joints: Postsurgical changes lower lumbar spine with spinal decompression posterolateral spinal instrumentation extending from L3 through S1. No acute bony abnormalities. Soft tissues: Neural stimulatory device with pattern all implanted within the right flank.. CT/CT abdomen pelvis wo con [id number] IMPRESSION: No acute findings within the abdomen or pelvis.
[2023-12-30 17:21] LABS: Creatine Phosphokinase 126 U/L (39-308)
--- NOTE | 2023-12-30 17:39 | ECG_ITS ---
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 Measurements Intervals [place] Rate: 68 P: 47 ME: 229 QRS: 5 QRSD: 97 T: 40 QT: 328 QTc: 349 Interpretive Statements SINUS RHYTHM WITH FIRST DEGREE AV BLOCK NONSPECIFIC T-WAVE ABNORMALITY Compared to ECG 11/09/2023 08:25:18 First degree AV block now present Ventricular premature complex(es) no longer present Possible ischemia no longer present T-wave abnormality still present Electronically Signed On 12-30-2023 21:35:50 CDT by Matthieu Kurtz M.D. [email or web address]
[2023-12-30 18:38] LABS: Troponin 5 2HR 16.04 ng/L (0-15); Troponin 5 2HR Delta 1.04 ABS# (0-10)
== END 2023-12-30 19:31 | disposition home or self-care (01) ==
PROVIDERS: Family Medicine; Nurse Practitioner Family; Emergency Provider Emergency Medicine; PCP Family Medicine
DX: R07.89 Other chest pain (principal); I49.3 Ventricular premature depolarization; Z79.02 Long term (current) use of antithrombotics/antiplatelets; Z79.82 Long term (current) use of aspirin; I25.10 Atherosclerotic heart disease of native coronary artery without angina pectoris; Z95.1 Presence of aortocoronary bypass graft; I10 Essential (primary) hypertension; E11.9 Type 2 diabetes mellitus without complications; E78.5 Hyperlipidemia, unspecified; Z87.891 Personal history of nicotine dependence
CPT/HCPCS: 36415; 71045; 74176; 80053; 82550; 83690; 83735; 84484; 85025; 93005; 99285

== ENCOUNTER → 2024-01-02 11:59 | Outpatient (BNVA) | payer MEDICARE, SELFPAY | PROVIDERS: PCP Family Medicine; Visit Provider Family Medicine | DX: R74.8 Abnormal levels of other serum enzymes (principal) | CPT/HCPCS: 83690 ==

== ENCOUNTER → 2024-01-10 10:00 | Outpatient (BNVA) | payer MEDICARE, SELFPAY | PROVIDERS: PCP Family Medicine; Visit Provider Internal Medicine Cardiovascular Disease | DX: I25.10 Atherosclerotic heart disease of native coronary artery without angina pectoris (principal); E78.5 Hyperlipidemia, unspecified; I12.9 Hypertensive chronic kidney disease with stage 1 through stage 4 chronic kidney disease, or unspecified chronic kidney disease; N18.31 Chronic kidney disease, stage 3a; E11.22 Type 2 diabetes mellitus with diabetic chronic kidney disease; G47.33 Obstructive sleep apnea (adult) (pediatric); Z87.891 Personal history of nicotine dependence; Z95.1 Presence of aortocoronary bypass graft; Z79.84 Long term (current) use of oral hypoglycemic drugs | CPT/HCPCS: 99214 ==

== ENCOUNTER 2024-01-15 14:51 | Outpatient (RCR) | payer MEDICARE, SELFPAY | END 2024-02-14 23:59 | disposition home or self-care (01) | LOC: CR 14:51 | PROVIDERS: PCP Family Medicine; Referring Provider Internal Medicine Cardiovascular Disease; Visit Provider Internal Medicine Cardiovascular Disease | DX: Z95.1 Presence of aortocoronary bypass graft (principal) | CPT/HCPCS: 93798 ==

== ENCOUNTER → 2024-02-08 09:07 | Outpatient (BNVA) | payer MEDICARE, SELFPAY | PROVIDERS: PCP Family Medicine Adult Medicine; Visit Provider Family Medicine Adult Medicine | DX: I25.10 Atherosclerotic heart disease of native coronary artery without angina pectoris (principal); E78.5 Hyperlipidemia, unspecified; E11.9 Type 2 diabetes mellitus without complications; E55.9 Vitamin D deficiency, unspecified; N18.9 Chronic kidney disease, unspecified; N18.2 Chronic kidney disease, stage 2 (mild); I10 Essential (primary) hypertension | CPT/HCPCS: 80061; 82652; 83036 ==

== ENCOUNTER 2024-02-15 16:13 | Outpatient (RCR) | payer MEDICARE, SELFPAY | END 2024-03-21 09:17 | disposition home or self-care (01) | LOC: CR 16:13 | PROVIDERS: PCP Family Medicine Adult Medicine; Referring Provider Internal Medicine Cardiovascular Disease; Visit Provider Internal Medicine Cardiovascular Disease | DX: Z95.1 Presence of aortocoronary bypass graft (principal) | CPT/HCPCS: 93798 ==

== ENCOUNTER 2024-03-17 10:42 | Outpatient (RCR) | payer MEDICARE, SELFPAY | END 2024-04-15 23:59 | disposition home or self-care (01) | LOC: CR 10:42 | PROVIDERS: PCP Family Medicine Adult Medicine; Referring Provider Internal Medicine Cardiovascular Disease; Visit Provider Internal Medicine Cardiovascular Disease | DX: Z95.1 Presence of aortocoronary bypass graft (principal) | CPT/HCPCS: 93798 ==

== ENCOUNTER → 2024-04-18 09:45 | Outpatient (BNVA) | payer MEDICARE, SELFPAY | PROVIDERS: PCP Family Medicine Adult Medicine; Visit Provider Internal Medicine Cardiovascular Disease | DX: E78.5 Hyperlipidemia, unspecified (principal); I12.9 Hypertensive chronic kidney disease with stage 1 through stage 4 chronic kidney disease, or unspecified chronic kidney disease; E11.22 Type 2 diabetes mellitus with diabetic chronic kidney disease; N18.2 Chronic kidney disease, stage 2 (mild); Z87.891 Personal history of nicotine dependence; Z79.84 Long term (current) use of oral hypoglycemic drugs; I25.10 Atherosclerotic heart disease of native coronary artery without angina pectoris; G47.33 Obstructive sleep apnea (adult) (pediatric); Z95.1 Presence of aortocoronary bypass graft | CPT/HCPCS: 99214 ==

== ENCOUNTER → 2024-09-23 08:28 | Outpatient (BNVA) | payer MEDICARE, SELFPAY | PROVIDERS: PCP Family Medicine; Visit Provider Family Medicine | DX: E11.9 Type 2 diabetes mellitus without complications (principal); Z12.5 Encounter for screening for malignant neoplasm of prostate; I25.10 Atherosclerotic heart disease of native coronary artery without angina pectoris; E78.5 Hyperlipidemia, unspecified; I25.110 Atherosclerotic heart disease of native coronary artery with unstable angina pectoris; I10 Essential (primary) hypertension; N18.2 Chronic kidney disease, stage 2 (mild); G47.33 Obstructive sleep apnea (adult) (pediatric); Z87.891 Personal history of nicotine dependence | CPT/HCPCS: 80053; 82043; 83036; G0103 ==

== ENCOUNTER 2024-09-24 07:26 | Emergency (ER) | payer MEDICARE, SELFPAY ==
[2024-09-24 07:30] VITALS: BP 196/90; PULSE 56; RESP 16; TEMP 36.6; O2SAT 100; BMI 30.9
--- NOTE | 2024-09-24 07:43 | XR_ITS ---
WS: [id number] PORTABLE CHEST HISTORY: dyspnea/cough COMPARISON: 12/30/2023 Median sternotomy. Lordotic positioning. Mild hazy attenuation at the LEFT lung base may be positional. No dense areas of consolidation. No pleural effusion or pneumothorax. Cardiac size: Normal. Mediastinum/Aorta: Mild atherosclerosis aorta. No osseous abnormality seen. XR/XR chest 1V portable [id number] IMPRESSION: 1. Mild hazy attenuation at the LEFT lung base. This may be due to the lordoti c positioning or atelectasis/pneumonitis. 2. Prior CABG.
--- NOTE | 2024-09-24 07:43 | ECG_ITS ---
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 Measurements Intervals [place] Rate: 55 P: 58 MN: 255 QRS: 9 QRSD: 110 T: 30 QT: 414 QTc: 396 Interpretive Statements SINUS BRADYCARDIA WITH FIRST DEGREE AV BLOCK Compared to ECG 12/30/2023 17:14:34 Sinus rhythm no longer present T-wave abnormality no longer present Electronically Signed On 09-27-2024 19:16:05 CDT by Matthieu Kurtz M.D. [email or web address]
[2024-09-24 07:49] LABS: Basophils # 0.1 10^3/uL (0.0-0.1); Basophils % 1.4 %; Eosinophils # 0.2 10^3/uL (0.0-0.8); Eosinophils % 3.4 %; Hematocrit 45.2 % (37-53); Lymphocytes # 1.8 10^3/uL (0.8-4.8); Lymphocytes % 35.5 %; Mean Corpuscular HGB Conc 33.2 g/dL (30-55); Mean Corpuscular Hemoglobin 29.3 pg (27-33); Mean Corpuscular Volume 88.3 fl (82-101); Mean Platelet Volume 9.8 fL (7.4-10.4); Monocytes # 0.6 10^3/uL (0.2-0.9); Monocytes % 11.7 %; Neutrophils # 2.42 10^3/uL (1.8-7.7); Nucleated Red Blood Cells % 0 %; Platelet Count 199 10^3/cmm (157-399); Red Blood Count 5.12 10^6/uL (3.85-5.65); Red Cell Distribution Width 12.8 % (12.1-15.1); White Blood Count 5.04 10^3/uL (3.29-11.43)
--- NOTE | 2024-09-24 07:51 | W.ED.GENADLT ---
HPI - General Adult General: Chief complaint: Nausea/Vomiting/Diarrhea Stated complaint: Nausea/High BP Time Seen by Provider: 09/24/24 07:31 History of Present Illness: 64-year-old male with a known history of coronary disease presents to the emergency room complaining of nausea and elevated blood pressure. This morning he woke up he felt like he was going to vomit noted his blood pressure was elevated he went to the restroom had a normal bowel movement and still continued to have nausea. He is concerned he may be having another heart attack. Patient did take all of his blood pressure meds this morning about 2 hours roughly prior to coming in. He has noticed recently his blood pressure has been running a little bit high. Patient has known coronary artery disease in October 2023 patient presented with chest pain slight elevation of his cardiac enzymes he was admitted started on heparin and cardiac catheterization was done he is found to have multivessel disease and was referred to [facility] in [place] for CABG. Subsequently he had a visit to the emergency room with complaint of chest pain his cardiac enzymes were negative and he was discharged home that was in December 2019 for about 6 weeks after his initial bypass. He is not currently having any chest pain or shortness of breath at this time. Not had any stress testing since his CABG. prior to his CABG he had an echocardiogram in October 2023 ejection fraction at that time was 45 to 50%. Patient has no orthopnea or exertional dyspnea at this time. He has been taking all of his medications regularly with no recent changes. Interestingly treadmill most days he says he does not get chest pain as a result of his exercise sessions. Associated symptoms: Reports nausea; Deny chest pain, dyspnea, rash or vomiting Related Data Home Medications ?Medication ?Instructions ?Recorded ?Confirmed ascorbic acid (vitamin C) 500 mg 500 mg PO DAILY 10/08/20 09/24/24 capsule cholecalciferol (vitamin D3) 50 50 mcg PO DAILY 10/08/20 09/24/24 mcg (2,000 unit) capsule multivitamin 1 tab PO DAILY 10/08/20 09/24/24 vitamin E (dl, acetate) 180 mg 450 mg PO DAILY 10/08/20 09/24/24 (400 unit) capsule omega-3 fatty acids 1,000 mg 2,000 mg PO DAILY 11/09/23 09/24/24 capsule aspirin 81 mg tablet,delayed 81 mg PO DAILY 11/24/23 09/24/24 release Previous Rx's ?Medication ?Instructions ?Recorded carvedilol 3.125 mg tablet 3.125 mg PO BID #180 tabs 09/23/24 empagliflozin 25 mg tablet 25 mg PO QAM #30 tabs 09/23/24 (Jardiance) fenofibrate micronized 200 mg See Rx Instructions .Route 09/23/24 capsule .COMPLEX #90 caps losartan 50 mg tablet 50 mg PO DAILY #90 tabs 09/23/24 rosuvastatin 10 mg tablet 10 mg PO DAILY #90 tabs 09/23/24 spironolactone 25 mg tablet 25 mg PO DAILY #90 tabs 09/23/24 levofloxacin 500 mg tablet 500 mg PO DAILY 7 days #7 tabs 09/24/24 Allergies Allergy/AdvReac Type Severity Reaction Status Date / Time lisinopril AdvReac Mild COUGH Verified 09/23/24 07:51 Review of Systems Const: Denies: fever(s) or chills Card: Denies: chest pain Resp: Denies: dyspnea GI: Reports: nausea; Denies: abdominal pain, vomiting or diarrhea : Denies: dysuria, urinary frequency or urinary urgency Musc: Denies: neck pain or back pain Skin/Breast: Denies: rash PFSH ED PFSH: Medical History CKD (chronic kidney disease) stage 2, GFR 60-89 ml/min History of colon polyps Atherosclerosis of [place] coronary artery without angina pectoris CABG x 5 11/13/23 Dr Garcia, NSTEMI 11/09/23 Lumbar disc disease with radiculopathy Essential hypertension Type 2 diabetes mellitus without complication, without long-term current use of insulin Dyslipidemia Depression JANES (obstructive sleep apnea) Surgical History S/P CABG x 5 S/P insertion of spinal cord stimulator History of back surgery L3-S1 Posterior Fusion L3-L4 Fusion with decompression Hardware removal of L4-S1 Fusion Family History Other CAD (coronary artery disease) Cancer Diabetes Hypertension Social History Smoking and tobacco/nicotine status: former use of tobacco/nicotine Alcohol intake: current Alcohol intake frequency: 3 or more drinks per day Alcohol type: beer and hard liquor Substance/Drug Use: never Physical Exam Const: COMMON NORMALS: no acute distress GENERAL APPEARANCE: cooperative and comfortable ORIENTATION/CONSCIOUSNESS: Yes awake, Yes oriented to person, Yes oriented to place and Yes oriented to time HENMT: COMMON NORMALS: normocephalic, atraumatic and hearing grossly normal bilaterally HEAD & SCALP: normocephalic and atraumatic Resp: COMMON NORMALS: normal respiratory effort, No retractions and No use of accessory muscles AUSCULTATION: crackles Laterality: left (Base) Cardio: COMMON NORMALS: regular rate, regular rhythm and No murmurs present (Cardio) RATE: regular rate RHYTHM: regular rhythm GI: COMMON NORMALS: Soft to palpation and No hepatosplenomegaly present AUSCULTATION: Yes normoactive bowel sounds PALPATION: Yes Soft to palpation, No Tenderness to palpation present (GI), No Guarding due to palpation present (GI) and Yes No hepatosplenomegaly present Extremity: COMMON NORMALS: normal to inspection, capillary refill normal, no clubbing, cyanosis or edema, no calf tenderness and no pedal edema Neuro: SENSORIUM/ORIENTATION: Yes oriented to person, Yes oriented to place and Yes oriented to time Skin: COMMON NORMALS: no rashes or lesions noted GENERAL SKIN EXAM: no rashes or lesions noted Course Vital Signs: Vital signs: Vital Signs Temperature 97.8 F 09/24/24 07:30 Pulse Rate 59 L 09/24/24 11:07 Respiratory Rate 16 09/24/24 07:30 Blood Pressure 150/79 09/24/24 11:07 Pulse Oximetry 99 09/24/24 11:07 Oxygen Delivery Me thod Room Air 09/24/24 10:50 MDM - General Adult Medical Decision Making Patient refused COVID flu RSV swab. Also question of the base of the left day of a pneumonia. He does have the symptoms has been a little nauseous had some mild chest discomfort. He is EKG shows a sinus bradycardia consistent with his being on carvedilol there is no acute ST changes and troponins did not show a significant positive delta. Will go ahead and treat the chest x-ray findings as probable pneumonia. Certainly the COVID flu RSV swab would have been helpful the patient declined twice. Will discharge patient home on Levaquin 500 daily. Reviewed findings with the patient return if he has further problems Lab Data 09/24/24 07:38 09/24/24 07:38 Radiology Impressions Chest X-Ray 09/24/24 07:43 IMPRESSION: 1. Mild hazy attenuation at the LEFT lung base. This may be due to the lordotic positioning or atelectasis/pneumonitis. 2. Prior CABG. Laboratory Results WBC 5.04 10^3/uL (3.29-11.43) 09/24/24 07:38 RBC 5.12 10^6/uL (3.85-5.65) 09/24/24 07:38 Hgb 15.00 g/dL (11.27-16.99) 09/24/24 07:38 Hct 45.2 % (37-53) 09/24/24 07:38 MCV 88.3 fl (82-101) 09/24/24 07:38 MCH 29.3 pg (27-33) 09/24/24 07:38 MCHC 33.2 g/dL (30-55) 09/24/24 07:38 RDW 12.8 % (12.1-15.1) 09/24/24 07:38 Plt Count 199 10^3/cmm (157-399) 09/24/24 07:38 MPV 9.8 fL (7.4-10.4) 09/24/24 07:38 Neut % (Auto) 48.0 % 09/24/24 07:38 Lymph % (Auto) 35.5 % 09/24/24 07:38 [place] % (Auto) 11.7 % 09/24/24 07:38 Eos % (Auto) 3.4 % 09/24/24 07:38 Baso % (Auto) 1.4 % 09/24/24 07:38 Neut # (Auto) 2.42 10^3/uL (1.8-7.7) 09/24/24 07:38 Lymph # (Auto) 1.8 10^3/uL (0.8-4.8) 09/24/24 07:38 [place] # (Auto) 0.6 10^3/uL (0.2-0.9) 09/24/24 07:38 Eos # (Auto) 0.2 10^3/uL (0.0-0.8) 09/24/24 07:38 Baso # (Auto) 0.1 10^3/uL (0.0-0.1) 09/24/24 07:38 Nucleated RBC % (auto) 0 % 09/24/24 07:38 Nucleated RBCs # 0.0 /100WBC 09/24/24 07:38 Sodium 139 mmol/L (136-145) 09/24/24 07:38 Potassium 4.4 mmol/L (3.5-5.1) 09/24/24 07:38 Chloride 101 mmol/L (98-107) 09/24/24 07:38 Carbon Dioxide 24 mmol/L (22-29) 09/24/24 07:38 Anion Gap 18.4 (5-19) 09/24/24 07:38 BUN 43 mg/dL (8-23) H 09/24/24 07:38 Creatinine 1.2 mg/dL (0.7-1.2) 09/24/24 07:38 GFR Calculation 60.6 mL/min (90-130) L 09/24/24 07:38 Glucose 192 mg/dL (65-115) H 09/24/24 07:38 Calculated Osmolality 304 mOsm/kg (285-295) H 09/24/24 07:38 Calcium 9.7 mg/dL (8.5-10.5) 09/24/24 07:38 Total Bilirubin 0.6 mg/dL (0.15-1.2) 09/24/24 07:38 AST 27 U/L (0-40) 09/24/24 07:38 ALT 27 U/L (0-41) 09/24/24 07:38 Alkaline Phosphatase 46 U/L (40-130) 09/24/24 07:38 Troponin T Baseline 15 ng/L (0-15) 09/24/24 07:38 Troponin T 120 Minute 16.52 ng/L (0-15) H 09/24/24 09:51 Delta Troponin T 1.52 ABS# (0-10) 09/24/24 09:51 Total Protein 7.8 g/dL (6.6-8.7) 09/24/24 07:38 Albumin 5.0 g/dL (3.5-5.2) 09/24/24 07:38 Globulin 2.8 g/dL (1.3-4.6) 09/24/24 07:38 All radiology interpretation(s) finalized by discharge Discharge Plan Discharge Patient Disposition: Home Clinical Impression: Left lower lobe pneumonia Condition: Stable Prescriptions: New levofloxacin 500 mg tablet 500 mg PO DAILY 7 Days Qty: 7 0RF No Action multivitamin Tablet 1 tab PO DAILY ascorbic acid (vitamin C) 500 mg capsule 500 mg PO DAILY vitamin E (dl, acetate) 400 unit capsule 450 mg PO DAILY cholecalciferol (vitamin D3) 50 mcg (2,000 unit) capsule 50 mcg PO DAILY Jardiance 25 mg tablet 25 mg PO QAM Qty: 30 2RF carvedilol 3.125 mg tablet 3.125 mg PO BID Qty: 180 0RF Rx Instructions: must administer with a meal/food fenofibrate micronized 200 mg capsule See Rx Instructions .ROUTE .COMPLEX Qty: 90 1RF Dose Instruction: take 1 capsule BY MOUTH EVERY DAY Rx Instructions: take 1 capsule BY MOUTH EVERY DAY losartan 50 mg tablet 50 mg PO DAILY Qty: 90 1RF rosuvastatin 10 mg tablet 10 mg PO DAILY Qty: 90 1RF spironolactone 25 mg tablet 25 mg PO DAILY Qty: 90 1RF aspirin 81 mg tablet,delayed release (DR/EC) 81 mg PO DAILY omega-3 fatty acids 1,000 mg Capsule 2,000 mg PO DAILY Discharge Orders: Discharge ED (Routine); Ordered 09/24/24 Ordered By: Augusto Valente Referrals: Vanessa Law DO [Primary Care Provider] - Discharge Diet: Usual diet Discharge Activity: Increase activity as tolerated Patient Instructions: Opioid Safety, Pain Management Activity Restrictions/Additional Instructions: Thank you for choosing [facility] for your healthcare needs today. It is very important that you follow up as instructed or that you return to the Emergency Department should you have concerns or if your condition changes or worsens in any way. You were seen in the emergency room with complaints of generally not feeling well some nausea elevated blood pressure while we are monitoring in the emergency room your blood pressure was at the upper end of normal but not significantly elevated your heart rate was consistent with the patient has been taking carvedilol. Your chest x-ray showed possible left lower lobe pneumonia. Your white count was normal. Based on the fact that you are having some symptoms and questionable findings on the chest x-ray we will treat it is a pneumonia and put you on Levaquin 500 milligrams once a day for 7 days. Your cardiac enzymes and EKG did not show any acute changes. If your symptoms change or worsen in any way recheck in the emergency room. Print Language: Khmer Coding Level of Care Code ED Supervisor Seaming for Britni Crow
[2024-09-24] MEDS: aspirin 81 mg Chew Tablet 324 MG PO (07:54)
[2024-09-24 08:13] LABS: Alanine Aminotransferase 27 U/L (0-41); Alkaline Phosphatase 46 U/L (40-130); Anion Gap 18.4 (5-19); Aspartate Amino Transferase 27 U/L (0-40); Blood Urea Nitrogen 43 mg/dL (8-23); Calcium 9.7 mg/dL (8.5-10.5); Carbon Dioxide 24 mmol/L (22-29); Chloride 101 mmol/L (98-107); Creatinine Clr Calc Pharmacy 75.3084; Globulin 2.8 g/dL (1.3-4.6); Glomerular Filtration Rate 60.6 mL/min (90-130); Glucose 192 mg/dL (65-115); Osmolality Calculated 304 mOsm/kg (285-295); Potassium 4.4 mmol/L (3.5-5.1); Sodium 139 mmol/L (136-145); Total Bilirubin 0.6 mg/dL (0.15-1.2); Total Protein 7.8 g/dL (6.6-8.7)
[2024-09-24 08:15] VITALS: BP 147/80; PULSE 57; O2SAT 98
[2024-09-24 08:16] LABS: Troponin(5th) Baseline 15 ng/L (0-15)
--- NOTE | 2024-09-24 08:20 | PC.PHAR ---
patient was just switched off of farxiga to jardiance
--- NOTE | 2024-09-24 09:43 | ECG_ITS ---
[facility]: 2024-09-24 Pat Name: Mason Harrell Department: Room: Gender: Male Medical Device: : 1960 Requested By: Augusto Monroe Order Number: [id number] Reading MD: Measurements Intervals [place] Rate: 57 P: 58 MD: 238 QRS: 13 QRSD: 100 T: 31 QT: 397 QTc: 387 Interpretive Statements SINUS BRADYCARDIA WITH FIRST DEGREE AV BLOCK [email or web address]
[2024-09-24 10:22] LABS: Troponin 5 2HR 16.52 ng/L (0-15); Troponin 5 2HR Delta 1.52 ABS# (0-10)
[2024-09-24 10:50] VITALS: BP 132/76; PULSE 59; O2SAT 98
--- NOTE | 2024-09-24 10:50 | PC.NURSE ---
PATIENT REFUSED COVID/FLU/RSV SWAB.
[2024-09-24 11:07] VITALS: BP 150/79; PULSE 59; O2SAT 99
== END 2024-09-24 11:09 | disposition home or self-care (01) ==
PROVIDERS: Emergency Provider Family Medicine; PCP Family Medicine
DX: J18.9 Pneumonia, unspecified organism (principal); Z79.82 Long term (current) use of aspirin; Z87.891 Personal history of nicotine dependence; Z95.1 Presence of aortocoronary bypass graft; E78.5 Hyperlipidemia, unspecified; E11.22 Type 2 diabetes mellitus with diabetic chronic kidney disease; I12.9 Hypertensive chronic kidney disease with stage 1 through stage 4 chronic kidney disease, or unspecified chronic kidney disease; N18.2 Chronic kidney disease, stage 2 (mild); I25.10 Atherosclerotic heart disease of native coronary artery without angina pectoris
CPT/HCPCS: 36415; 71045; 80053; 84484; 85025; 93005; 99285

== ENCOUNTER 2024-10-16 07:31 | Outpatient (CLI) | payer MEDICARE, SELFPAY ==
--- NOTE | 2024-10-16 07:45 | CT_ITS ---
WS: [id number] LDCT LUNG CANCER SCREENING TECHNIQUE: Noncontrast CT of the chest with coronal and sagittal reformatted images. CLINICAL INFORMATION: screening COMPARISON: 2022 DLP: 119.60 mGy.cm DIvol: Mean CTDIvol: 2.60 (mGy) All CT scans at [facility] use at least one of these dose optimization techniques: automated exposure control; mA and/or kV adjustment per patient size (includes targeted exams where dose is matched to clinical indication); or iterative reconstruction. FINDINGS: A few calcified granulomas. No new suspicious pulmonary parenchymal abnormalities. Stable 4 mm RIGHT perifissural nodule. Sternotomy. Normal caliber thoracic aorta. Coronary calcification. No mediastinal or hilar lymphadenopathy. No axillary lymphadenopathy. Adrenal glands are normal. Small esophageal canal hernia. Thoracic spinal stimulator. CT/CT lung screening [id number] IMPRESSION: LUNG-RADS: 2-Benign Appearance or Behavior FOLLOW UP: 12 Month: Continue annual screening with LDCT
== END 2024-10-16 07:32 | disposition home or self-care (01) ==
LOC: RAD 07:33
PROVIDERS: PCP Family Medicine; Visit Provider Family Medicine
DX: Z12.2 Encounter for screening for malignant neoplasm of respiratory organs (principal); Z87.891 Personal history of nicotine dependence; J84.10 Pulmonary fibrosis, unspecified; R91.1 Solitary pulmonary nodule; I25.10 Atherosclerotic heart disease of native coronary artery without angina pectoris; K44.9 Diaphragmatic hernia without obstruction or gangrene; Z96.89 Presence of other specified functional implants
CPT/HCPCS: 71271

== ENCOUNTER 2024-11-04 07:41 | Outpatient (CLI) | payer MEDICARE, SELFPAY ==
--- NOTE | 2024-11-04 08:00 | USCV_ITS ---
Mason Harrell Age: 64 Gender: M : 1960 Exam Date: 11/04/2024 08:09 Ordering Phys: Vanessa Law DO Technologist: [facility] [place]am [place] [facility] Indication: AAA screening HISTORY: Diameter (cm) AP x Transverse x Length Velocity (cm/s) Waveform Prox Aorta: 1.52 x 1.88 x 78.80 Triphasic Mid Aorta: 1.70 x 1.72 x 64.60 Triphasic Distal Aorta: 1.81 x 1.91 x 72.30 Triphasic Right Iliac Prox: 1.29 x 1.24 x 71.90 Triphasic Left Iliac Prox: 1.24 x 1.22 x 87.40 Triphasic Stent Prox Landing x x Aneurysmal Sac Max x x Lt Lat Sac Dim Rt Lat Sac Dim Stent Dist Landing x x Right Iliac Stent x x Left Iliac Stent x x Right Renal Art Left Renal Art FINDINGS: CONCLUSIONS No evidence of abdominal aortic or bilateral iliac aneurysm. Mild aortic atheromatous disease Mayito Arboleda MD (Electronically Signed) Final Date: 04 November 2024 10:01 S
== END 2024-11-04 07:42 | disposition home or self-care (01) ==
LOC: RAD 07:43
PROVIDERS: PCP Family Medicine; Visit Provider Family Medicine
DX: Z87.891 Personal history of nicotine dependence (principal); I70.0 Atherosclerosis of aorta
CPT/HCPCS: 76706

== ENCOUNTER → 2024-11-07 09:00 | Outpatient (BNVA) | payer MEDICARE, SELFPAY | PROVIDERS: PCP Family Medicine; Visit Provider Nurse Practitioner Family | DX: I12.9 Hypertensive chronic kidney disease with stage 1 through stage 4 chronic kidney disease, or unspecified chronic kidney disease (principal); E11.22 Type 2 diabetes mellitus with diabetic chronic kidney disease; N18.2 Chronic kidney disease, stage 2 (mild); Z79.84 Long term (current) use of oral hypoglycemic drugs; I25.10 Atherosclerotic heart disease of native coronary artery without angina pectoris; Z95.1 Presence of aortocoronary bypass graft | CPT/HCPCS: 99214 ==

== ENCOUNTER → 2024-12-23 08:25 | Outpatient (BNVA) | payer MEDICARE, SELFPAY | PROVIDERS: PCP Family Medicine; Visit Provider Family Medicine | DX: E11.9 Type 2 diabetes mellitus without complications (principal) | CPT/HCPCS: 80053; 83036 ==

== ENCOUNTER → 2025-03-27 10:18 | Outpatient (BNVA) | payer MEDICARE, SELFPAY | PROVIDERS: PCP Family Medicine; Visit Provider Family Medicine | DX: E11.9 Type 2 diabetes mellitus without complications (principal) | CPT/HCPCS: 80053; 80061; 83036; 83721 ==

== ENCOUNTER → 2025-05-08 10:35 | Outpatient (BNVA) | payer MEDICARE, SELFPAY | PROVIDERS: PCP Family Medicine; Visit Provider Internal Medicine Cardiovascular Disease | DX: I25.10 Atherosclerotic heart disease of native coronary artery without angina pectoris (principal); E78.5 Hyperlipidemia, unspecified; I10 Essential (primary) hypertension; E11.9 Type 2 diabetes mellitus without complications; Z79.85 Long-term (current) use of injectable non-insulin antidiabetic drugs; G47.33 Obstructive sleep apnea (adult) (pediatric); Z99.89 Dependence on other enabling machines and devices; Z95.1 Presence of aortocoronary bypass graft | CPT/HCPCS: 99214 ==